=== PATIENT | female | born 1945 | race Caucasian/White ===

== ENCOUNTER 2017-03-17 10:02 | Inpatient (IN) | payer MEDICARE, OTHER, MEDICAID ==
[2017-03-17] MEDS ORDERED: CLINDAMYCIN PHOSPHATE INJ 300 MG/2 ML SDV IV ONE (11:24)
--- NOTE | 2017-03-17 11:28 | ER Document Report ---
ED Skin Rash/Insect Bite/Abscs - General Chief Complaint: Boil Stated Complaint: BREAST PAIN Time Seen by Provider: 03/17/17 11:18 Mode of Arrival: Ambulatory Information source: Patient Notes: 71 yo diabetic female resident on [facility] was seen at [facility] for IV antibiotics for 3 abscess that she has been battling for several weeks.The PA sent her to the ER for admission. PCP Jessa Troncoso MD. No fever. No hx MRSA TRAVEL OUTSIDE OF THE [place] IN LAST 30 DAYS: No - Related Data Allergies/Adverse Reactions: Sulfa (Sulfonamide Antibiotics) Allergy (Intermediate, Verified 03/17/17 10:08) RASH methotrexate [Methotrexate] Adverse Reaction (Unknown, Verified 03/17/17 10:08) Hepatic dysfunction Home Medications: Current Home Medications Acetaminophen [Tylenol Extra Strength 500 mg Tablet] 1,000 mg PO Q8HP PRN [History] Amlodipine Besylate [Norvasc 2.5 mg Tablet] 2.5 mg PO DAILY 03/17/17 [History] Citalopram Hydrobromide [Celexa 20 mg Tablet] 20 mg PO DAILY 03/17/17 [History] Clopidogrel Bisulfate [Plavix 75 mg Tablet] 75 mg PO DAILY 03/17/17 [History] Insulin Detemir [Levemir Flextouch] 12 unit SQ QHS 03/17/17 [History] Insulin Detemir [Levemir Flextouch] 14 unit SQ DAILY 03/17/17 [History] Insulin Lispro [Humalog] 0 unit SQ ASDIR PRN 03/17/17 [History] Lisinopril [Prinivil 10 mg Tablet] 10 mg PO DAILY 03/17/17 [History] Loratadine [Claritin] 10 mg PO DAILY 03/17/17 [History] Lorazepam [Ativan 0.5 mg Tablet] 0.25 mg PO Q12 03/17/17 [History] Metformin HCl [Glucophage] 500 mg PO [id number] 03/17/17 [History] Polyvinyl Alcohol [Artificial Tears] 15 ml OU QID 03/17/17 [History] Quetiapine Fumarate [Seroquel 25 mg Tablet] 25 mg PO QHS 03/17/17 [History] Simvastatin 40 mg PO QHS 03/17/17 [History] Past Medical History - General Information source: Patient - Social History Smoking Status: Never Smoker Frequency of alcohol use: None Drug Abuse: None Lives with: Prison Family History: Reviewed & Not Pertinent Patient has suicidal ideation: No Patient has homicidal ideation: No - Past Medical History Cardiac Medical History: Reports: Hx Hypercholesterolemia, Hx Hypertension Pulmonary Medical History: Reports: Hx COPD, Hx Pneumonia Neurological Medical History: Reports: Hx Cerebrovascular Accident - USES WHEELCHAIR Endocrine Medical History: Reports: Hx Diabetes Mellitus Type 2 Renal/ Medical History: Denies: Hx Peritoneal Dialysis GI Medical History: Reports: 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 Musculoskeltal Medical History: Reports Hx Arthritis Psychiatric Medical History: Reports: Hx Depression Infectious Medical History: Reports: 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 Past Surgical History: Reports: Hx Appendectomy - per patient, Hx Cholecystectomy, Hx Hysterectomy - Immunizations Hx Diphtheria, Pertussis, Tetanus Vaccination: Yes Hx Pneumococcal Vaccination: 09/01/12 Review of Systems - Review of Systems Constitutional: No symptoms reported EENT: No symptoms reported Cardiovascular: No symptoms reported Respiratory: No symptoms reported Gastrointestinal: No symptoms reported Genitourinary: No symptoms reported Female Genitourinary: No symptoms reported Musculoskeletal: No symptoms reported Skin: See HPI Hematologic/Lymphatic: No symptoms reported Neurological/Psychological: No symptoms reported Physical Exam - Vital signs Vitals: Temp Pulse Resp BP Pulse Ox 98.3 F 107 H 20 145/64 H 92 03/17/17 10:08 03/17/17 10:08 03/17/17 10:08 03/17/17 10:08 03/17/17 10:08 Interpretation: Normal - General General appearance: Appears well, Alert In distress: None - HEENT Head: Normocephalic, Atraumatic Eyes: Normal Pupils: PERRL Neck: Supple. No: Lymphadenopathy - Respiratory Respiratory status: No respiratory distress Chest status: Nontender Breath sounds: Normal Chest palpation: Normal - Cardiovascular Rhythm: Regular Heart sounds: Normal auscultation Murmur: No - Abdominal Inspection: Normal Distension: No distension Bowel sounds: Normal Tenderness: Nontender Organomegaly: No organomegaly - Back Back: Normal, Nontender - Extremities General upper extremity: Normal inspection, Nontender, Normal color, Normal ROM , Normal temperature General lower extremity: Normal inspection, Nontender, Normal color, Normal ROM , Normal temperature, Normal weight bearing. No: Katerina's sign - Neurological Neuro grossly intact: Yes Cognition: Normal Orientation: AAOx4 [place] Coma Scale Eye Opening: Spontaneous [place] Coma Scale Verbal: Oriented Dougie Coma Scale Motor: Obeys Commands [place] Coma Scale Total: 15 Speech: Normal Motor strength normal: LUE, RUE, LLE, RLE Sensory: Normal - Psychological Associated symptoms: Normal affect, Normal mood - Skin Skin Temperature: Warm Skin Moisture: Dry Skin Color: Normal Skin irregularity: Abscess - right infereior breast, flucuant with surrounding cellulits. , right olecranon with crusted abscess, right axilla healing lestion (drained spontaneously) Course - Re-evaluation Re-evalutation: 03/17/17 11:[address] rodriguez who will admit, consult for dr jaron howard, message given to him, he is in surgery. - Vital Signs Vital signs: Temp Pulse Resp BP Pulse Ox 98.2 F 58 L 18 130/57 H 100 03/20/17 20:00 03/20/17 20:00 03/20/17 15:43 03/20/17 20:00 03/20/17 20:00 - Laboratory Result Diagrams: 03/19/17 04:42 03/20/17 15:00 Laboratory results interpreted by me: 03/17/17 03/17/17 11:51 11:51 WBC 15.5 H Hgb 9.3 L Hct 30.4 L MCH 24.5 L MCHC 30.6 L RDW 18.1 H Seg Neutrophils % 80.7 H Lymphocytes % 7.3 L Absolute Neutrophils 12.5 H BUN 29 H Est GFR (Non-Af Amer) 50 L Glucose 170 H Alkaline Phosphatase 154 H Albumin 3.3 L Discharge - Discharge Clinical Impression: Abscess of multiple sites Condition: Good Disposition: ADMITTED INPATIENT Admitting Provider: Hospitalist Unit Admitted: Medical Floor
[2017-03-17] MEDS ORDERED: NORMAL SALINE 1000 ML 1,000 ML IV ONE (11:46)
[2017-03-17] MEDS ORDERED: MAGNESIUM HYDROXIDE SUSP 30 ML UDCUP PO PRN (12:17)
[2017-03-17] MEDS ORDERED: ONDANSETRON HCL INJ/PF 4 MG/2 ML SDV IV PRN ×2 (12:17→13:29)
[2017-03-17] MEDS ORDERED: OXYCODONE-ACETAMINOPHEN 5-325 MG TABLET PO PRN (12:17)
[2017-03-17] MEDS ORDERED: NORMAL SALINE 1000 ML 1,000 ML IV PRN (12:17)
[2017-03-17 12:19] LABS: ABSOLUTE BASOPHILS # (AUTO) 0.1 10^3/uL (0.0-0.2); ABSOLUTE EOSINOPHILS # (AUTO) 0.4 10^3/uL (0.0-0.6); ABSOLUTE LYMPHOCYTES (AUTO) 1.1 10^3/uL (0.5-4.7); ABSOLUTE MONOCYTES (AUTO) 1.3 10^3/uL (0.1-1.4); ABSOLUTE NEUT (AUTO) 12.5 10^3/uL (1.7-8.2); BASOPHILS % (AUTO) 0.6 % (0-2); EOSINOPHILS % (AUTO) 2.8 % (0-6); HEMATOCRIT 30.4 % (36.0-47.0); HEMOGLOBIN 9.3 g/dL (12.0-15.5); HGB HCT DIFFERENCE -2.5; LYMPHOCYTES % (AUTO) 7.3 % (13-45); MEAN CORPUSCULAR HEMOGLOBIN 24.5 pg (27.0-33.4); MEAN CORPUSCULAR HGB CONC 30.6 g/dL (32.0-36.0); MEAN CORPUSCULAR VOLUME 80 fl (80-97); MONOCYTES % (AUTO) 8.6 % (3-13); RED BLOOD COUNT 3.81 10^6/uL (3.72-5.28); RED CELL DISTRIBUTION WIDTH 18.1 % (11.5-14.0); SEGMENTED NEUTROPHILS % (AUTO) 80.7 % (42-78); WHITE BLOOD COUNT 15.5 10^3/uL (4.0-10.5)
[2017-03-17] MEDS ORDERED: AMPICILLIN SOD/SULBACTAM 3 GM VIAL IV ONE (12:24)
[2017-03-17] MEDS ORDERED: DEXTROSE 40% GEL 15 GM TUBE PO PRN ×2 (12:25)
[2017-03-17] MEDS ORDERED: GLUCAGON,HUMAN RECOMB 1 MG INJ IM PRN (12:25)
[2017-03-17] MEDS ORDERED: DEXTROSE 50%-WATER 25 GM/50 ML DISP.SYRIN IV PRN ×2 (12:25)
[2017-03-17] MEDS ORDERED: VANCOMYCIN HCL 0 MG in DEXTROSE 5%-WATER 250 ML IV NR (12:30)
[2017-03-17 12:38] LABS: ALANINE AMINOTRANSFERASE 22 U/L (9-52); ALBUMIN 3.3 g/dL (3.5-5.0); ALKALINE PHOSPHATASE 154 U/L (38-126); ANION GAP 11 (5-19); ASPARTATE AMINO TRANSFERASE 14 U/L (14-36); BILIRUBIN,DIRECT 0.3 mg/dL (0.0-0.4); BILIRUBIN,TOTAL 0.5 mg/dL (0.2-1.3); BLOOD UREA NITROGEN 29 mg/dL (7-20); CALCIUM 9.1 mg/dL (8.4-10.2); CARBON DIOXIDE 23 mmol/L (22-30); CHLORIDE 107 mmol/L (98-107); CREATININE RESULT 1.08 mg/dL (0.52-1.25); GLUCOSE 170 mg/dL (75-110); SODIUM 141.3 mmol/L (137-145); TOTAL PROTEIN 7.1 g/dL (6.3-8.2)
[2017-03-17] MEDS ORDERED: FENTANYL CITRATE INJ/PF 100 MCG/2 ML AMPUL ONE (13:14)
[2017-03-17] MEDS ORDERED: MIDAZOLAM 2 MG/2 ML INJ ONE (13:14)
[2017-03-17] MEDS ORDERED: PROPOFOL INJ 200 MG/20 ML VIAL IV ONE (13:14)
[2017-03-17] MEDS ORDERED: ACETAMINOPHEN 100 ML IV ONE (13:15)
[2017-03-17] MEDS ORDERED: KETAMINE HCL INJ 500 MG/10 ML VIAL ONE (13:15)
[2017-03-17] MEDS ORDERED: LIDOCAINE 1% INJ-PF (10 MG/ML) 30 ML SDV ONE (13:18)
[2017-03-17] MEDS ORDERED: MORPHINE SULFATE 10 MG/ML INJ IV PRN (13:29)
[2017-03-17] MEDS ORDERED: MEPERIDINE HCL/PF INJ 25 MG/1 ML DISP.SYRIN IV PRN (13:29)
[2017-03-17] MEDS ORDERED: PROMETHAZINE HCL INJ 25 MG/1 ML VIAL IV PRN (13:29)
[2017-03-17] MEDS ORDERED: DIPHENHYDRAMINE HCL 50 MG/ML VIAL IV PRN (13:29)
[2017-03-17] MEDS ORDERED: FENTANYL CITRATE INJ/PF 100 MCG/2 ML AMPUL IV PRN (13:29)
--- NOTE | 2017-03-17 13:33 | CONSULTATION REPORT E ---
Consultation Report NAME: VINNY KEYS : 1945 AGE: 71Y DATE: 03/17/2017 ED02 A TO: HATTIE GAO M.D. FROM: TR LEMOS M.D. Requesting Physician Patient seen at the request of Dr. Lemos, hospitalist. REPORT OF CONSULTATION: The patient is a 71-year-old white female with a history of arthritis, resident of [facility], with a several week history of multiple abscesses involving her right breast, right axilla, and right elbow. She was seen in the [facility] today where she was felt to have evidence of infection that could not be managed in the clinic and she was sent to the emergency department for further evaluation. There, she was seen by Dr. Gao and Dr. Lemos and felt to require admission for cellulitis, right breast abscess refractory to outpatient medical management, and early sepsis. PAST MEDICAL/SURGICAL HISTORY: Can be found in history and physical document. PHYSICAL EXAMINATION: GENERAL: Patient examined in room 2 of the emergency department. She is in no acute distress. She is awake, alert, and oriented x4. BREASTS: Cutaneous examination reveals a large elevated focal superficially pre-necrotic abscess at the 4 o'clock position. Right breast with sponginess and tenderness and surrounding cellulitis. Small punctate abscess in the right elbow and similar abscess in the right axilla. LUNGS: Clear to auscultation bilaterally. HEART: Without murmur or gallop. Remainder of examination is significant for severe arthritis of the lower extremities. LABORATORY PROFILE: A white blood cell count of 15,000, hemoglobin of 9. IMPRESSION: 1. Multiple abscesses with largest involving the right breast, and secondary abscesses of the right axilla and right elbow, refractory to outpatient medical management, in need of operative debridement. 2. Patient on antiplatelet medication, Plavix. RECOMMENDATIONS: 1. Patient is being admitted to the hospitalist service, kept n.p.o. on IV fluids and intravenous antibiotics started. 2. Will take back to the operating room under LMAC anesthesia and perform I and D of these abscesses with packing; right breast abscess will be sent for histologic analysis as well. DICTATING PHYSICIAN: HATTIE GAO M.D. [id number] PHY#: [id number] ID: [id number] JOB#: [id number] ACCT: [id number] cc:HATTIE GAO M.D. >
--- NOTE | 2017-03-17 13:36 | PDOC H&P ---
History of Present Illness Admission Date/PCP: 03/17/17 11:48 ZULY FRANCIS Patient complains of: pain and swelling in her breast History of Present Illness: VINNY KEYS is a 71 year old female resident of [place] presents from surgeon's office for evaluation of pain and swelling in her Rt breast. she states it all started a couple of weeks ago with painful swollen nodule under her Rt armpit that spontaneously eriupted " a bunch of fluid" and then got better. short time after that she developed a "sore" on her Rt breast just under the nipple and another on her Rt elbow. both are swollen red hot to touch and very tender and getting bigger and more painful described as sharp, stabbing ,constant, nonradiating with asct'd chills and nausea. no trauma or instrumentation. no prior hx of MRSA or other chronic/recurrent infections however she is on biologic agent for her psoriasis, no steroids. eval in ED shows cellulitis with abscess of the rt breast and elbow and we were asked to admit for IV abx and management. Past Medical History Cardiac Medical History: Reports: Hyperlipidema, Hypertension Denies: Myocardial Infarction Pulmonary Medical History: Reports: Chronic Obstructive Pulmonary Disease (COPD) , Pneumonia Denies: Asthma, Tuberculosis Neurological Medical History: Denies: Seizures Endocrine Medical History: Reports: Diabetes Mellitus Type 2 GI Medical History: Reports: Hepatitis - damage from taking methatrexate Denies: Hiatal Hernia Musculoskeltal Medical History: Reports: Arthritis Skin Medical History: Reports: Psoriasis Psychiatric Medical History: Reports: Depression Hematology: Denies: Anemia, Sickle Cell Disease Past Surgical History Past Surgical History: Reports: Appendectomy - per patient, Cholecystectomy, Hysterectomy Denies: Amputation, Mastectomy, Pacemaker Social History Information Source: Patient Smoking Status: Never Smoker Frequency of Alcohol Use: None Hx Recreational Drug Use: No Hx Prescription Drug Abuse: No - Advance Directive Resuscitation Status: Full Code Family History Family History: Reviewed & Not Pertinent, DM Parental Family History Reviewed: Yes Children Family History Reviewed: Yes Sibling(s) Family History Reviewed.: Yes Medication/Allergy Allergies/Adverse Reactions: Sulfa (Sulfonamide Antibiotics) Allergy (Intermediate, Verified 03/17/17 10:08) RASH methotrexate [Methotrexate] Adverse Reaction (Unknown, Verified 03/17/17 10:08) Hepatic dysfunction Review of Systems All systems: reviewed and no additional remarkable complaints except as stated - all systems reviewed, see HPI, remaining systems negative Physical Exam Vital Signs: Temp Pulse Resp BP Pulse Ox 98.3 F 107 H 20 145/64 H 92 03/17/17 10:08 03/17/17 10:08 03/17/17 10:08 03/17/17 10:08 03/17/17 10:08 General appearance: PRESENT: no acute distress, well-developed, well-nourished Head exam: PRESENT: atraumatic, normocephalic Eye exam: ABSENT: conjunctival injection, scleral icterus Mouth exam: PRESENT: moist, neck supple Neck exam: PRESENT: full ROM. ABSENT: lymphadenopathy Respiratory exam: PRESENT: clear to auscultation karyn. ABSENT: accessory muscle use Cardiovascular exam: PRESENT: RRR. ABSENT: systolic murmur Pulses: PRESENT: normal radial pulses, normal dorsalis pedis pul Vascular exam: PRESENT: normal capillary refill GI/Abdominal exam: PRESENT: normal bowel sounds, soft. ABSENT: tenderness Extremities exam: ABSENT: calf tenderness, pedal edema Musculoskeletal exam: PRESENT: full ROM. ABSENT: tenderness Neurological exam: PRESENT: alert, awake, oriented to person, oriented to place , oriented to time Psychiatric exam: PRESENT: appropriate affect, normal mood Focused psych exam: ABSENT: delusional, psychomotor agitation Skin exam: PRESENT: rash - -Rt elbow has purulent vesicle 5mm with surrounding induration, erythema, heat and tenderness without lymphangitic streaking -Rt breast at the 5 o'clock position to the nipple just outside the areola is ragged appearing group of purulent vesicles overlying tight induration with surrounding erythema, heat and tenderness of at least 8cm round Results Laboratory Results: 03/17/17 11:51 03/17/17 11:51 03/17/17 03/17/17 11:51 11:51 WBC 15.5 H RBC 3.81 Hgb 9.3 L Hct 30.4 L MCV 80 MCH 24.5 L MCHC 30.6 L RDW 18.1 H Plt Count 380 Seg Neutrophils % 80.7 H Lymphocytes % 7.3 L Monocytes % 8.6 Eosinophils % 2.8 Basophils % 0.6 Absolute Neutrophils 12.5 H Absolute Lymphocytes 1.1 Absolute Monocytes 1.3 Absolute Eosinophils 0.4 Absolute Basophils 0.1 Sodium 141.3 Potassium 5.0 Chloride 107 Carbon Dioxide 23 Anion Gap 11 BUN 29 H Creatinine 1.08 Est GFR ( Amer) > 60 Est GFR (Non-Af Amer) 50 L Glucose 170 H Calcium 9.1 Total Bilirubin 0.5 AST 14 ALT 22 Alkaline Phosphatase 154 H Total Protein 7.1 Albumin 3.3 L Assessment & Plan - Diagnosis (1) Cellulitis and abscess of trunk Is this a current diagnosis for this admission?: Yes (2) Cellulitis and abscess of other specified site Is this a current diagnosis for this admission?: Yes (3) Sepsis affecting skin Is this a current diagnosis for this admission?: YesPlan: evidenced by source, leukocytosis and tachycardia (4) HTN (hypertension) Qualifiers: Hypertension type: essential hypertension Qualified Code(s): I10 - Essential (primary) hypertension Is this a current diagnosis for this admission?: Yes (5) Psoriasis Is this a current diagnosis for this admission?: Yes (6) Immunosuppression Is this a current diagnosis for this admission?: YesPlan: due to chronic immunomodulator therapy for psoriasis (Enbrel) - Time Time Spent: 50 to 70 Minutes Medications reviewed and adjusted accordingly: Yes Anticipated discharge: SNF - return to [facility] Within: within 72 hours - Inpatient Certification Based on my medical assessment, after consideration of the patient's comorbidities, presenting symptoms, or acuity I expect that the services needed warrant INPATIENT care.: Yes I certify that my determination is in accordance with my understanding of Medicare's requirements for reasonable and necessary INPATIENT services [42 CFR 412.3e].: Yes Medical Necessity: Failure to Improve With Outpatient Therapy, Significant Comorbidiites Make Outpatient Treatment Too Risky, Need For IV Fluids, Need for IV Antibiotics, Need for Surgery, Risk of Complication if Not Cared For in Hospital - Plan Summary Plan Summary: - continue home meds for chronic conditions except the biologic agents - I spoke with Dr Gao who intends to take to the OR later today for I&D - broad spectrum abx in light of her SNF residence and potential exposure to MRSA as well as her immunocompromised state - IVFs and abx for the sepsis; f/u labs in am. f/u cultures and adjust abx accordingly
--- NOTE | 2017-03-17 14:49 | Operative Report ---
Operative Report DATE OF SURGERY: 03/17/17 PREOPERATIVE DIAGNOSIS: Multiple abscesses of the right axilla right elbow, and right breast POSTOPERATIVE DIAGNOSIS: Same; infection suspicious for MRSA OPERATION: Excisional debridement of multiple abscesses including. 1. right axilla, 2 x 2 x 5 cm. 2. Right elbow 0.5 x 1.5 x 3 cm. 3. Right breast 4 x 6 x 4 cm. Including washout, debridement and packing SURGEON: HATTIE CUEVAS ANESTHESIA: LMAC TISSUE REMOVED OR ALTERED: Nonviable skin and pus and subcutaneous tissue COMPLICATIONS: None ESTIMATED BLOOD LOSS: Scant INTRAOPERATIVE FINDINGS: See below PROCEDURE: With epinephrine. The right elbow abscess just distal to the olecranon was excised in an elliptical fashion, underlying loculations broken up with hemostat. Wound irrigated and packed with approximately 3 inches of 1 inch wide iodoform packing. The patient was taken to the preop holding area the main operating room where LMAC anesthesia was induced. The right elbow, axilla and breast were prepped draped sterile fashion Surgical plan surgical timeout was conducted. All 3 abscesses were anesthetized with 1% lidocaine ; On the right axilla with the wound approximately 2 and at by 2.5 x 4 cm deep. Loculations were broken up after excising the skin with a knife. The wound was consistent with MRSA. Wound cultures obtained. Total skin removed 2 x 2 x 2 cm. The right breast infra periareolar abscess was excised in elliptical fashion. Copious amount of pus exuded forth. Loculations broken broken up with index finger. There was no evidence of mass-effect so no formal biopsy was performed for histologic analysis. This wound was also irrigated and packed with iodoform packing. Total skin removed was a 4 x 6 centimeters. Postop procedure well, taken recovery in stable condition.
[2017-03-17] MEDS ORDERED: MAGNESIUM SULFATE/D5W 1 GM/100 ML RTUPB IV ONE (14:58)
[2017-03-17] MEDS: VANCOMYCIN HCL 1,250 MG in DEXTROSE 5%-WATER 250 ML IV SCH (18:40)
[2017-03-17] MEDS: AMPICILLIN SODIUM/SULBACTAM NA 3 GM in NORMAL SALINE 100 ML IV SCH ×2 (18:42→22:09)
[2017-03-17] MEDS ORDERED: KETOROLAC TROMETHAMINE 60 MG/2 ML SDV ONE (18:49)
[2017-03-17] MEDS ORDERED: LIDOCAINE 2% INJ-PF (20 MG/ML) 10 ML AMPUL ONE (18:49)
[2017-03-17] MEDS ORDERED: METOCLOPRAMIDE HCL INJ/PF 10 MG/2 ML SDV ONE (18:49)
[2017-03-17] MEDS ORDERED: ONDANSETRON HCL INJ/PF 4 MG/2 ML SDV ONE (18:49)
[2017-03-17] MEDS ORDERED: DEXAMETHASONE SOD PHOSPHATE INJ 4 MG/1 ML VIAL ONE (18:49)
[2017-03-17] MEDS: INSULIN LISPRO 100 UNIT/ML 3 ML VIAL SUBCUT PRN (22:12)
[2017-03-17] MEDS: INSULIN GLARGINE,HUM.REC.ANLOG 300 UNIT/3 ML INSULN.PEN SUBCUT SCH (22:12)
[2017-03-18] MEDS: ACETAMINOPHEN 325 MG TABLET PO PRN ×3 (02:16→23:11)
[2017-03-18 05:16] LABS: HEMATOCRIT 25.4 % (36.0-47.0); HGB HCT DIFFERENCE -1.4; MEAN CORPUSCULAR HEMOGLOBIN 24.9 pg (27.0-33.4); MEAN CORPUSCULAR HGB CONC 31.4 g/dL (32.0-36.0); MEAN CORPUSCULAR VOLUME 79 fl (80-97); RED BLOOD COUNT 3.21 10^6/uL (3.72-5.28); RED CELL DISTRIBUTION WIDTH 18.3 % (11.5-14.0)
[2017-03-18] MEDS: LANSOPRAZOLE 30 MG TAB.RAP.DR PO SCH (05:23)
[2017-03-18] MEDS: AMPICILLIN SODIUM/SULBACTAM NA 3 GM in NORMAL SALINE 100 ML IV SCH ×3 (05:23→22:57)
[2017-03-18 05:58] LABS: BASOPHILS % (MANUAL) 0 % (0-2); EOSINOPHILS % (MANUAL) 6 % (0-6); LYMPHOCYTES % (MANUAL) 4 % (13-45); TOTAL CELLS COUNTED 100; TOXIC VACUOLATION PRESENT
[2017-03-18 05:59] LABS: ANISOCYTOSIS 2+
[2017-03-18] MEDS: ENOXAPARIN SODIUM INJ 30 MG/0.3 ML DISP.SYRIN SUBCUT SCH (08:36)
--- NOTE | 2017-03-18 09:14 | PROGRESS NOTE E ---
Progress Note NAME: VINNY KEYS : 1945 AGE: 71Y DATE: 03/18/2017 ROOM: 537 SUBJECTIVE: The patient had incision and drainage of multiple abscesses in the arm, axillary and the breast done by Dr. Gao on 03/17/2017. OBJECTIVE: On examination, all her dressings are clean and dry. She is complaining of pain along the right elbow. The wound here was inspected. No evidence of bleeding or abscess. It is one of the areas drained by Dr. Gao. The patient was reassured. PLAN: I would change the dressing tomorrow and possibly discharge after that. She can be discharged on p.o. antibiotics and [facility] DICTATING PHYSICIAN: CR EUBANKS M.D. [id number] PHY#: [id number] ID: [id number] JOB#: [id number] ACCT: [id number] cc: >
[2017-03-18] MEDS ORDERED: POLYVINYL ALCOHOL 1.4% OPH SOLN 15 ML OU SCH (10:00)
--- NOTE | 2017-03-18 10:58 | PDOC PROGRESS REPORT ---
Subjective Progress Note for:: 03/18/17 Subjective:: reason for visit: f/u cellulitis and abscesses of skin hospital course: VINNY KEYS is a 71 year old female resident of [place] presents from surgeon's office for evaluation of pain and swelling in her Rt breast. she states it all started a couple of weeks ago with painful swollen nodule under her Rt armpit that spontaneously eriupted " a bunch of fluid" and then got better. short time after that she developed a "sore" on her Rt breast just under the nipple and another on her Rt elbow. both are swollen red hot to touch and very tender and getting bigger and more painful described as sharp, stabbing ,constant, nonradiating with asct'd chills and nausea. no trauma or instrumentation. no prior hx of MRSA or other chronic/ recurrent infections however she is on biologic agent for her psoriasis, no steroids. eval in ED shows cellulitis with abscess of the rt breast and elbow and we were asked to admit for IV abx and management. Dr Gao took to the OR last night for I&D of the three areas of concern with good liberation of pus and removal on nonviable tissue; cultures still pending. she tolerated the procedure without difficulty and overall feels better this morning. ROS: she denies chest pain, palpitations, n/v/d, fevers/chills and is in good spirits this morning. all systems reviewed, see above, remaining systems negative. Physical Exam Vital Signs: Temp Pulse Resp BP Pulse Ox 98.0 F 69 17 128/35 H 94 03/18/17 07:08 03/18/17 07:08 03/18/17 07:08 03/18/17 07:08 03/18/17 07:08 Intake & Output 03/17/17 03/18/17 03/19/17 06:59 06:59 06:59 Intake Total 1945 360 Output Total 305 Balance 1640 360 Weight 73.8 kg General appearance: PRESENT: no acute distress, well-developed, well-nourished Head exam: PRESENT: atraumatic, normocephalic Eye exam: ABSENT: conjunctival injection, scleral icterus Mouth exam: PRESENT: moist, neck supple Neck exam: PRESENT: full ROM. ABSENT: lymphadenopathy Respiratory exam: PRESENT: clear to auscultation karyn. ABSENT: accessory muscle use Cardiovascular exam: PRESENT: RRR. ABSENT: systolic murmur Pulses: PRESENT: normal radial pulses, normal dorsalis pedis pul Vascular exam: PRESENT: normal capillary refill GI/Abdominal exam: PRESENT: normal bowel sounds, soft. ABSENT: tenderness Extremities exam: ABSENT: calf tenderness, pedal edema Musculoskeletal exam: PRESENT: full ROM. ABSENT: tenderness Neurological exam: PRESENT: alert, awake, oriented to person, oriented to place , oriented to time Psychiatric exam: PRESENT: appropriate affect, normal mood Focused psych exam: ABSENT: delusional, psychomotor agitation Skin exam: PRESENT: rash - -Rt elbow bandaged with surrounding erythema without lymphangitic streaking and bloody, purulent drainage from the wound -Rt breast at the 5 o'clock position to the nipple just outside the areola large bandage with bloody purulent drainage; Rt axilla has large bandage with bloody purulent drainage as well. Results Laboratory Results: 03/18/17 04:43 03/17/17 03/18/17 17:39 04:43 WBC 14.0 H RBC 3.21 L Hgb 8.0 L Hct 25.4 L MCV 79 L MCH 24.9 L MCHC 31.4 L RDW 18.3 H Plt Count 316 Seg Neutrophils % Not Reportable Lymphocytes % Not Reportable Monocytes % Not Reportable Eosinophils % Not Reportable Basophils % Not Reportable Absolute Neutrophils Not Reportable Absolute Lymphocytes Not Reportable Absolute Monocytes Not Reportable Absolute Eosinophils Not Reportable Absolute Basophils Not Reportable Magnesium 1.9 Assessment & Plan - Diagnosis (1) Cellulitis and abscess of trunk Is this a current diagnosis for this admission?: Yes (2) Cellulitis and abscess of other specified site Is this a current diagnosis for this admission?: Yes (3) Sepsis affecting skin Is this a current diagnosis for this admission?: Yes (4) HTN (hypertension) Qualifiers: Hypertension type: essential hypertension Qualified Code(s): I10 - Essential (primary) hypertension Is this a current diagnosis for this admission?: Yes (5) Psoriasis Is this a current diagnosis for this admission?: Yes (6) Immunosuppression Is this a current diagnosis for this admission?: Yes - Time Time Spent with patient: 25-34 minutes - Plan Summary Plan Summary: most likely staph infection at high risk for MRSA but cultures of fluid still pending so she stays until we can make abx decisions for discharge. may need PICC line and long courese of IV vanc.
[2017-03-18] MEDS: CLOPIDOGREL BISULFATE 75 MG TABLET PO SCH (11:12)
[2017-03-18] MEDS: DOCUSATE SODIUM 100 MG CAPSULE PO SCH (11:13)
[2017-03-18] MEDS: CITALOPRAM HYDROBROMIDE 20 MG TABLET PO SCH (11:13)
[2017-03-18] MEDS: AMLODIPINE BESYLATE 2.5 MG TABLET PO SCH (11:13)
[2017-03-18] MEDS: LORAZEPAM 0.5 MG TABLET PO SCH ×2 (11:13→22:56)
[2017-03-18] MEDS: POLYVINYL ALCOHOL 1.4% OPH SOLN 15 ML OU SCH ×3 (13:05→22:57)
[2017-03-18] MEDS: VANCOMYCIN HCL 1,250 MG in DEXTROSE 5%-WATER 250 ML IV SCH (15:49)
[2017-03-18] MEDS: INSULIN LISPRO 100 UNIT/ML 3 ML VIAL SUBCUT PRN ×2 (17:12→22:57)
[2017-03-18] MEDS: INSULIN GLARGINE,HUM.REC.ANLOG 300 UNIT/3 ML INSULN.PEN SUBCUT SCH (22:56)
[2017-03-18] MEDS: SIMVASTATIN 40 MG TABLET PO SCH (22:56)
[2017-03-18] MEDS: QUETIAPINE FUMARATE 25 MG TABLET PO SCH (22:56)
[2017-03-19 05:03] LABS: ABSOLUTE BASOPHILS # (AUTO) 0.1 10^3/uL (0.0-0.2); ABSOLUTE EOSINOPHILS # (AUTO) 0.7 10^3/uL (0.0-0.6); ABSOLUTE LYMPHOCYTES (AUTO) 0.8 10^3/uL (0.5-4.7); ABSOLUTE MONOCYTES (AUTO) 0.9 10^3/uL (0.1-1.4); ABSOLUTE NEUT (AUTO) 8.3 10^3/uL (1.7-8.2); BASOPHILS % (AUTO) 0.9 % (0-2); EOSINOPHILS % (AUTO) 6.7 % (0-6); HEMATOCRIT 26.4 % (36.0-47.0); HEMOGLOBIN 8.2 g/dL (12.0-15.5); HGB HCT DIFFERENCE -1.8; LYMPHOCYTES % (AUTO) 7.3 % (13-45); MEAN CORPUSCULAR VOLUME 81 fl (80-97); MONOCYTES % (AUTO) 8.7 % (3-13); RED BLOOD COUNT 3.28 10^6/uL (3.72-5.28); RED CELL DISTRIBUTION WIDTH 17.4 % (11.5-14.0); SEGMENTED NEUTROPHILS % (AUTO) 76.4 % (42-78); WHITE BLOOD COUNT 10.9 10^3/uL (4.0-10.5)
[2017-03-19] MEDS: LANSOPRAZOLE 30 MG TAB.RAP.DR PO SCH (05:21)
[2017-03-19] MEDS: POLYVINYL ALCOHOL 1.4% OPH SOLN 15 ML OU SCH ×4 (05:23→23:34)
[2017-03-19] MEDS: AMPICILLIN SODIUM/SULBACTAM NA 3 GM in NORMAL SALINE 100 ML IV SCH ×3 (05:23→21:37)
[2017-03-19] MEDS: ENOXAPARIN SODIUM INJ 30 MG/0.3 ML DISP.SYRIN SUBCUT SCH (08:27)
[2017-03-19] MEDS: DOCUSATE SODIUM 100 MG CAPSULE PO SCH (10:44)
[2017-03-19] MEDS: LORAZEPAM 0.5 MG TABLET PO SCH ×2 (10:44→21:37)
[2017-03-19] MEDS: AMLODIPINE BESYLATE 2.5 MG TABLET PO SCH (10:44)
[2017-03-19] MEDS: CLOPIDOGREL BISULFATE 75 MG TABLET PO SCH (10:44)
[2017-03-19] MEDS: CITALOPRAM HYDROBROMIDE 20 MG TABLET PO SCH (10:44)
--- NOTE | 2017-03-19 11:35 | PDOC PROGRESS REPORT ---
Subjective Progress Note for:: 03/19/17 Subjective:: reason for visit: f/u cellulitis and abscesses of skin hospital course: VINNY KEYS is a 71 year old female resident of [place] presents from surgeon's office for evaluation of pain and swelling in her Rt breast. she states it all started a couple of weeks ago with painful swollen nodule under her Rt armpit that spontaneously eriupted " a bunch of fluid" and then got better. short time after that she developed a "sore" on her Rt breast just under the nipple and another on her Rt elbow. both are swollen red hot to touch and very tender and getting bigger and more painful described as sharp, stabbing ,constant, nonradiating with asct'd chills and nausea. no trauma or instrumentation. no prior hx of MRSA or other chronic/ recurrent infections however she is on biologic agent for her psoriasis, no steroids. eval in ED shows cellulitis with abscess of the rt breast and elbow and we were asked to admit for IV abx and management. Dr Gao took to the OR last night for I&D of the three areas of concern with good liberation of pus and removal on nonviable tissue; cultures so far unrevealing. she tolerated the procedure without difficulty and overall feels better each morning. ROS: she denies chest pain, palpitations, n/v/d, fevers/chills and is in good spirits this morning. all systems reviewed, see above, remaining systems negative. Physical Exam Vital Signs: Temp Pulse Resp BP Pulse Ox 97.8 F 38 L 16 146/36 H 97 03/19/17 07:35 03/19/17 07:35 03/19/17 07:35 03/19/17 07:35 03/19/17 07:35 Intake & Output 03/18/17 03/19/17 03/20/17 06:59 06:59 06:59 Intake Total 1945 2220 Output Total 305 Balance 1640 2220 Weight 73.8 kg 76.6 kg General appearance: PRESENT: no acute distress, well-developed, well-nourished Head exam: PRESENT: atraumatic, normocephalic Eye exam: ABSENT: conjunctival injection, scleral icterus Mouth exam: PRESENT: moist, neck supple Neck exam: PRESENT: full ROM. ABSENT: lymphadenopathy Respiratory exam: PRESENT: clear to auscultation karyn. ABSENT: accessory muscle use Cardiovascular exam: PRESENT: RRR. ABSENT: systolic murmur Pulses: PRESENT: normal radial pulses, normal dorsalis pedis pul Vascular exam: PRESENT: normal capillary refill GI/Abdominal exam: PRESENT: normal bowel sounds, soft. ABSENT: tenderness Extremities exam: ABSENT: calf tenderness, pedal edema Musculoskeletal exam: PRESENT: full ROM. ABSENT: tenderness Neurological exam: PRESENT: alert, awake, oriented to person, oriented to place , oriented to time Psychiatric exam: PRESENT: appropriate affect, normal mood Focused psych exam: ABSENT: delusional, psychomotor agitation Skin exam: PRESENT: rash - -Rt elbow bandaged with surrounding erythema without lymphangitic streaking and bloody, purulent drainage from the wound -Rt breast at the 5 o'clock position to the nipple just outside the areola large bandage with bloody purulent drainage; Rt axilla has large bandage with bloody purulent drainage as well. Results Laboratory Results: 03/19/17 04:42 03/19/17 04:42 WBC 10.9 H RBC 3.28 L Hgb 8.2 L Hct 26.4 L MCV 81 MCH 25.0 L MCHC 31.0 L RDW 17.4 H Plt Count 299 Seg Neutrophils % 76.4 Lymphocytes % 7.3 L Monocytes % 8.7 Eosinophils % 6.7 H Basophils % 0.9 Absolute Neutrophils 8.3 H Absolute Lymphocytes 0.8 Absolute Monocytes 0.9 Absolute Eosinophils 0.7 H Absolute Basophils 0.1 Assessment & Plan - Diagnosis (1) Cellulitis and abscess of trunk Is this a current diagnosis for this admission?: Yes (2) Cellulitis and abscess of other specified site Is this a current diagnosis for this admission?: Yes (3) Sepsis affecting skin Is this a current diagnosis for this admission?: Yes (4) HTN (hypertension) Qualifiers: Hypertension type: essential hypertension Qualified Code(s): I10 - Essential (primary) hypertension Is this a current diagnosis for this admission?: Yes (5) Psoriasis Is this a current diagnosis for this admission?: Yes (6) Immunosuppression Is this a current diagnosis for this admission?: Yes - Time Time Spent with patient: 15-24 minutes Anticipated discharge: SNF Within: within 24 hours - [facility] - Plan Summary Plan Summary: awaiting final path/culture results to decide on oral vx Iv abx as one surgeon says it definitely looks like MRSA while the other thinks oral therapy is appropriate; remember she is immunocompromised which has to be taken into consideration.
[2017-03-19] MEDS: INSULIN LISPRO 100 UNIT/ML 3 ML VIAL SUBCUT PRN ×3 (12:11→21:37)
[2017-03-19] MEDS: VANCOMYCIN HCL 1,250 MG in DEXTROSE 5%-WATER 250 ML IV SCH (15:51)
[2017-03-19] MEDS: ACETAMINOPHEN 325 MG TABLET PO PRN (16:30)
[2017-03-19] MEDS: INSULIN GLARGINE,HUM.REC.ANLOG 300 UNIT/3 ML INSULN.PEN SUBCUT SCH (21:36)
[2017-03-19] MEDS: QUETIAPINE FUMARATE 25 MG TABLET PO SCH (21:37)
[2017-03-19] MEDS: SIMVASTATIN 40 MG TABLET PO SCH (21:37)
--- NOTE | 2017-03-19 21:43 | PROGRESS NOTE E ---
Progress Note NAME: VINNY KEYS : 1945 AGE: 71Y DATE: 03/19/2017 ROOM: 537 SUBJECTIVE: This is the second day for postoperative I and D of the right axilla, right breast and right elbow. All the packing were removed and the wounds noted to be clean. The axilla in the right breast on the sides were gently packed with 0.25 iodoform gauze. She will need continued gentle packing of the wounds daily until they continue to heal. I believe she is going to [facility] tomorrow and [facility] can continue with the dressing changes. DICTATING PHYSICIAN: CR EUBANKS M.D. [id number] PHY#: [id number] ID: [id number] JOB#: [id number] ACCT: [id number] cc: >
[2017-03-20] MEDS: LANSOPRAZOLE 30 MG TAB.RAP.DR PO SCH (05:35)
[2017-03-20] MEDS: ACETAMINOPHEN 325 MG TABLET PO PRN (05:36)
[2017-03-20] MEDS: POLYVINYL ALCOHOL 1.4% OPH SOLN 15 ML OU SCH ×4 (05:36→23:34)
[2017-03-20] MEDS: AMPICILLIN SODIUM/SULBACTAM NA 3 GM in NORMAL SALINE 100 ML IV SCH ×3 (05:36→21:48)
[2017-03-20] MEDS: LORAZEPAM 0.5 MG TABLET PO SCH ×2 (09:36→21:48)
[2017-03-20] MEDS: DOCUSATE SODIUM 100 MG CAPSULE PO SCH (09:36)
[2017-03-20] MEDS: ENOXAPARIN SODIUM INJ 30 MG/0.3 ML DISP.SYRIN SUBCUT SCH (09:36)
[2017-03-20] MEDS: CITALOPRAM HYDROBROMIDE 20 MG TABLET PO SCH (09:36)
[2017-03-20] MEDS: AMLODIPINE BESYLATE 2.5 MG TABLET PO SCH (09:37)
[2017-03-20] MEDS: CLOPIDOGREL BISULFATE 75 MG TABLET PO SCH (09:37)
[2017-03-20] MEDS: INSULIN LISPRO 100 UNIT/ML 3 ML VIAL SUBCUT PRN (11:30)
[2017-03-20] MEDS ORDERED: ONDANSETRON HCL INJ/PF 4 MG/2 ML SDV IV PRN (13:26)
[2017-03-20] MEDS ORDERED: OXYCODONE-ACETAMINOPHEN 5-325 MG TABLET PO PRN (13:27)
[2017-03-20] MEDS ORDERED: MAGNESIUM HYDROXIDE SUSP 30 ML UDCUP PO PRN (13:32)
[2017-03-20] MEDS: VANCOMYCIN HCL 1,250 MG in DEXTROSE 5%-WATER 250 ML IV SCH (15:54)
[2017-03-20 15:55] LABS: CREATININE RESULT 0.98 mg/dL (0.52-1.25)
--- NOTE | 2017-03-20 18:54 | PDOC TRANSFER SUMMARY ---
General - Admit/Disc Date/PCP Admission Date/Primary Care Provider: 03/17/17 12:18 ZULY FRANCIS Discharge Date: 03/21/17 - Discharge Diagnosis (1) Cellulitis and abscess of trunk Is this a current diagnosis for this admission?: YesSummary: mssa s/p I&D; continue wound care with gentle iodoform packing daily covered with gauze until healed. needs 10d augmentin and close oupt f/u (2) Cellulitis and abscess of other specified site Is this a current diagnosis for this admission?: Yes (3) Sepsis affecting skin Is this a current diagnosis for this admission?: YesSummary: resolvd (4) HTN (hypertension) Is this a current diagnosis for this admission?: YesSummary: continue home regimen (5) Psoriasis Is this a current diagnosis for this admission?: YesSummary: topical treatment only until infection clears (6) Immunosuppression Is this a current diagnosis for this admission?: YesSummary: hold biologic agents until infection cleared - Additional Information Resuscitation Status: Full Code Discharge Diet: Diabetic Discharge Activity: Slowly Increase Activity, Supervised Activity - resume previous activity Home Medications: Acetaminophen [Tylenol Extra Strength 500 mg Tablet] 1,000 mg PO Q8HP PRN Amlodipine Besylate [Norvasc 2.5 mg Tablet] 2.5 mg PO DAILY 03/17/17 Citalopram Hydrobromide [Celexa 20 mg Tablet] 20 mg PO DAILY 03/17/17 Clopidogrel Bisulfate [Plavix 75 mg Tablet] 75 mg PO DAILY 03/17/17 Insulin Detemir [Levemir Flextouch] 12 unit SQ QHS 03/17/17 Insulin Detemir [Levemir Flextouch] 14 unit SQ DAILY 03/17/17 Insulin Lispro [Humalog] 0 unit SQ ASDIR PRN 03/17/17 Lisinopril [Prinivil 10 mg Tablet] 10 mg PO DAILY 03/17/17 Loratadine [Claritin] 10 mg PO DAILY 03/17/17 Lorazepam [Ativan 0.5 mg Tablet] 0.25 mg PO Q12 03/17/17 Metformin HCl [Glucophage] 500 mg PO [id number] 03/17/17 Polyvinyl Alcohol [Artificial Tears] 15 ml OU QID 03/17/17 Quetiapine Fumarate [Seroquel 25 mg Tablet] 25 mg PO QHS 03/17/17 Simvastatin 40 mg PO QHS 03/17/17 Amox Tr/Potassium Clavulanate [Augmentin 875-125 mg Tablet] 1 tab PO BID #20 tablet 03/20/17 Docusate Sodium [Colace 100 mg Capsule] 100 mg PO DAILY capsule 03/20/17 Magnesium Hydroxide [Milk of Magnesia 30 ml Udcup] 30 ml PO HSP PRN udc Oxycodone HCl/Acetaminophen [Percocet 5-325 mg Tablet] 1 tab PO Q4HP PRN #14 tablet 03/20/17 History of Present Illness Admission Date/PCP: 03/17/17 12:18 ZULY FRANCIS Patient complains of: pain and swelling of breast and axilla History of Present Illness: VINNY KEYS is a 71 year old female resident of [place] presents from surgeon's office for evaluation of pain and swelling in her Rt breast. she states it all started a couple of weeks ago with painful swollen nodule under her Rt armpit that spontaneously eriupted " a bunch of fluid" and then got better. short time after that she developed a "sore" on her Rt breast just under the nipple and another on her Rt elbow. both are swollen red hot to touch and very tender and getting bigger and more painful described as sharp, stabbing ,constant, nonradiating with asct'd chills and nausea. no trauma or instrumentation. no prior hx of MRSA or other chronic/recurrent infections however she is on biologic agent for her psoriasis, no steroids. eval in ED shows cellulitis with abscess of the rt breast and elbow and we were asked to admit for IV abx and management. she was admitted and placed on IV abx and surgical evaluation for extensive I&D of all three lesions and immediate improvement in condition. her cultures returned showing MSSA and she can be weaned back to oral augmentin for another 10d. she is stable for transport back to [place] where she resides but it is too late in the day and will have to wait until morning. Hospital Course Hospital Course: she states it all started a couple of weeks ago with painful swollen nodule under her Rt armpit that spontaneously eriupted " a bunch of fluid" and then got better. short time after that she developed a "sore" on her Rt breast just under the nipple and another on her Rt elbow. both are swollen red hot to touch and very tender and getting bigger and more painful described as sharp, stabbing ,constant, nonradiating with asct'd chills and nausea. no trauma or instrumentation. no prior hx of MRSA or other chronic/recurrent infections however she is on biologic agent for her psoriasis, no steroids. eval in ED shows cellulitis with abscess of the rt breast and elbow and we were asked to admit for IV abx and management. Dr Gao took to the OR last night for I&D of the three areas of concern with good liberation of pus and removal on nonviable tissue; cultures so far unrevealing. she tolerated the procedure without difficulty and overall feels better each morning. Physical Exam Vital Signs: Temp Pulse Resp BP Pulse Ox 98.1 F 36 L 18 178/53 H 99 03/20/17 15:43 03/20/17 15:43 03/20/17 15:43 03/20/17 15:43 03/20/17 15:43 Intake & Output 03/19/17 03/20/17 03/21/17 06:59 06:59 06:59 Intake Total 2220 1501 1626 Balance 2220 1501 1626 Weight 76.6 kg 73.1 kg General appearance: PRESENT: no acute distress, well-developed, well-nourished Head exam: PRESENT: atraumatic, normocephalic Respiratory exam: PRESENT: clear to auscultation karyn GI/Abdominal exam: PRESENT: normal bowel sounds, soft. ABSENT: tenderness Skin exam: PRESENT: other - lesions all improved, still with some purulent drainage from the breast and serosanguinous fluid from the elbow and axilla Results Laboratory Results: 03/19/17 04:42 03/20/17 15:00 03/20/17 15:00 Creatinine 0.98 Est GFR ( Amer) > 60 Est GFR (Non-Af Amer) 56 L 03/17/17 14:33 Axilla - Right Side Abscess Gram Stain - Final 03/17/17 14:33 Axilla - Right Side Abscess Wound Culture - Final Staphylococcus Aureus No Anaerobic Organisms Transfer Plan - Disposition Transfer Plan: continue wound care and abx at the facility; f/u with surgeon for wound ck - Time Spent with Patient Time spent with patient: Greater than 30 Minutes Qualifiers PATEINT BEING DISCHARGED WITH ANY OF THE FOLLOWING DIAGNOSIS?: No VTE patient discharged on overlapping Therapy?: No Reason(s) for not prescribing Overlap Therapy:: Not indicated
[2017-03-20] MEDS: INSULIN GLARGINE,HUM.REC.ANLOG 300 UNIT/3 ML INSULN.PEN SUBCUT SCH (21:45)
[2017-03-20] MEDS: QUETIAPINE FUMARATE 25 MG TABLET PO SCH (21:48)
[2017-03-20] MEDS: SIMVASTATIN 40 MG TABLET PO SCH (21:48)
[2017-03-21] MEDS: POLYVINYL ALCOHOL 1.4% OPH SOLN 15 ML OU SCH ×2 (05:09→14:16)
[2017-03-21] MEDS: LANSOPRAZOLE 30 MG TAB.RAP.DR PO SCH (05:09)
[2017-03-21] MEDS: AMPICILLIN SODIUM/SULBACTAM NA 3 GM in NORMAL SALINE 100 ML IV SCH ×2 (05:09→16:17)
[2017-03-21] MEDS: CLOPIDOGREL BISULFATE 75 MG TABLET PO SCH (09:58)
[2017-03-21] MEDS: DOCUSATE SODIUM 100 MG CAPSULE PO SCH (09:58)
[2017-03-21] MEDS: ENOXAPARIN SODIUM INJ 30 MG/0.3 ML DISP.SYRIN SUBCUT SCH (09:58)
[2017-03-21] MEDS: CITALOPRAM HYDROBROMIDE 20 MG TABLET PO SCH (09:58)
[2017-03-21] MEDS: AMLODIPINE BESYLATE 2.5 MG TABLET PO SCH (09:58)
[2017-03-21] MEDS: LORAZEPAM 0.5 MG TABLET PO SCH (09:58)
--- NOTE | 2017-03-21 10:11 | PDOC PROGRESS REPORT ---
Subjective Progress Note for:: 03/21/17 Subjective:: This is an addendum to a discharge summary dictated 03/20/2017. There have been no changes made to the plan of care as outlined in yesterday's discharge summary dictated by Dr. Sarkar. On the day of discharge the patient is feeling well. Plan of care as outlined in yesterday's discharge summary. She is stable for transfer Physical Exam Vital Signs: Temp Pulse Resp BP Pulse Ox 97.6 F 78 20 140/44 H 98 03/21/17 07:42 03/21/17 07:42 03/21/17 07:42 03/21/17 07:42 03/21/17 07:42 Intake & Output 03/20/17 03/21/17 03/22/17 06:59 06:59 06:59 Intake Total 1501 2106 Output Total 400 Balance 1501 1706 Weight 73.1 kg 70.5 kg General appearance: PRESENT: no acute distress Head exam: PRESENT: atraumatic, normocephalic Respiratory exam: PRESENT: clear to auscultation karyn Cardiovascular exam: PRESENT: RRR, +S1, +S2 GI/Abdominal exam: PRESENT: normal bowel sounds, soft. ABSENT: tenderness Neurological exam: PRESENT: alert, awake, oriented to person, oriented to place , oriented to time Results Laboratory Results: 03/19/17 04:42 03/20/17 15:00 03/20/17 15:00 Creatinine 0.98 Est GFR ( Amer) > 60 Est GFR (Non-Af Amer) 56 L 03/17/17 14:33 Axilla - Right Side Abscess Gram Stain - Final 03/17/17 14:33 Axilla - Right Side Abscess Wound Culture - Final Staphylococcus Aureus No Anaerobic Organisms Assessment & Plan - Diagnosis (2) Cellulitis and abscess of other specified site Is this a current diagnosis for this admission?: Yes (3) Cellulitis and abscess of trunk Is this a current diagnosis for this admission?: Yes (4) HTN (hypertension) Qualifiers: Hypertension type: essential hypertension Qualified Code(s): I10 - Essential (primary) hypertension Is this a current diagnosis for this admission?: Yes (5) Immunosuppression Is this a current diagnosis for this admission?: Yes (6) Psoriasis Is this a current diagnosis for this admission?: Yes (7) Sepsis affecting skin Is this a current diagnosis for this admission?: Yes - Time Time Spent with patient: 35 minutes Time Spent with patient: 35 or more minutes
[2017-03-21 11:59] VITALS: BP 151/52
[2017-03-21] MEDS: ACETAMINOPHEN 325 MG TABLET PO PRN (16:18)
== END 2017-03-21 17:29 | DRG 854 ==
LOC: ER 10:02 → UNDOADMIN 11:48 → EH 11:48 → 5 16:08
PROVIDERS: ADMIT Internal Medicine; ATTEND Internal Medicine
PROC: 0HBDXZZ Excision of Right Lower Arm Skin, External Approach (ICD-10-PCS; 2017-03-17)
PROC: 0HBBXZZ Excision of Right Upper Arm Skin, External Approach (ICD-10-PCS; 2017-03-17)
PROC: 0HBTXZZ (ICD-10-PCS; principal; 2017-03-17 14:00)
DX: A41.9 Sepsis, unspecified organism (principal); L03.113 Cellulitis of right upper limb; L02.411 Cutaneous abscess of right axilla; N61.1 Abscess of the breast and nipple; I10 Essential (primary) hypertension; E78.5 Hyperlipidemia, unspecified; B95.61 Methicillin susceptible Staphylococcus aureus infection as the cause of diseases classified elsewhere; J44.9 Chronic obstructive pulmonary disease, unspecified; E11.9 Type 2 diabetes mellitus without complications; M19.90 Unspecified osteoarthritis, unspecified site; L40.9 Psoriasis, unspecified; F32.9 Major depressive disorder, single episode, unspecified; T50.995S Adverse effect of other drugs, medicaments and biological substances, sequela; Z88.2 Allergy status to sulfonamides; Z88.8 Allergy status to other drugs, medicaments and biological substances; Z90.49 Acquired absence of other specified parts of digestive tract; Z90.710 Acquired absence of both cervix and uterus; Z92.25 Personal history of immunosuppression therapy; Z79.4 Long term (current) use of insulin; Z79.84 Long term (current) use of oral hypoglycemic drugs; Z79.899 Other long term (current) drug therapy; Z86.73 Personal history of transient ischemic attack (TIA), and cerebral infarction without residual deficits
CPT/HCPCS: 36415; 400; 80053; 80202; 82565; 82962; 83735; 85025; 87040; 87070; 87075; 87077; 87186; 87205; 99284; A6266; J0131; J0295; J1100; J1650; J1815; J1885; J2250; J2405; J2704; J2765; J3010; J3370; J3475; J3490; J7030; J7060

== ENCOUNTER 2017-05-21 05:24 | Emergency (ER) | payer MEDICARE, OTHER, MEDICAID ==
--- NOTE | 2017-05-21 05:46 | ER Document Report ---
ED General - General Chief Complaint: Fall Stated Complaint: FALL NECK INJURY Time Seen by Provider: 05/21/17 05:31 Notes: Patient is a 71-year-old female presents with complaint of a fall from [facility]. She says she was trying to get out of her wheelchair and she will fell forward hitting her forehead on the floor. She also put on her left hand and now has some pain in left hand. She denies any neck pain. No back pain. No chest or abdominal pain. No hip or pelvis pain. No other complaints at this time. TRAVEL OUTSIDE OF THE [place] IN LAST 30 DAYS: No - Related Data Allergies/Adverse Reactions: Sulfa (Sulfonamide Antibiotics) Allergy (Intermediate, Verified 05/21/17 05:52) RASH methotrexate [Methotrexate] Adverse Reaction (Unknown, Verified 05/21/17 05:52) Hepatic dysfunction Past Medical History - Social History Smoking Status: Never Smoker Frequency of alcohol use: None Drug Abuse: None Family History: Reviewed & Not Pertinent - Past Medical History Cardiac Medical History: Reports: Hx Hypercholesterolemia, Hx Hypertension Denies: Hx Heart Attack Pulmonary Medical History: Reports: Hx COPD, Hx Pneumonia Denies: Hx Asthma, Hx Tuberculosis Neurological Medical History: Reports: Hx Cerebrovascular Accident - USES WHEELCHAIR. 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 Denies: Hx Mastectomy, Hx Open Heart Surgery , Hx Pacemaker - Immunizations Hx Diphtheria, Pertussis, Tetanus Vaccination: Yes Hx Pneumococcal Vaccination: 09/01/12 Review of Systems - Review of Systems Notes: My Normal Review Basic REVIEW OF SYSTEMS: CONSTITUTIONAL : Denies fever, chills, or sweats. Denies recent illness. RESPIRATORY: Denies cough, cold, or chest congestion. Denies shortness of breath, difficulty breathing, or wheezing. GASTROINTESTINAL: Denies abdominal pain. Denies nausea, vomiting, or diarrhea. Denies constipation. Last BM: MUSCULOSKELETAL: Left hand pain. SKIN: Denies rash or skin lesions. HEMATOLOGIC : Denies easy bruising or bleeding. NEUROLOGICAL: Denies altered mental status or loss of consciousness. Denies headache. Denies weakness or paralysis or loss of use of either side. Denies problems with gait or speech. Denies sensory or motor loss. ALL OTHER SYSTEMS REVIEWED AND NEGATIVE. Physical Exam - Vital signs Vitals: Temp Pulse Resp BP Pulse Ox 98.5 F 73 18 177/64 H 99 05/21/17 05:29 05/21/17 05:29 05/21/17 05:29 05/21/17 05:29 05/21/17 05:29 - Notes Notes: General Appearance: Well nourished, alert, cooperative, no acute distress, no obvious discomfort. Well-appearing. Vitals: reviewed, See vital signs table. Head: Obvious hematoma to left forehead with a small superficial laceration is approximately 1 cm. Eyes: PERRL, EOMI, Conjuctiva clear Mouth: No decreasd moisture Neck: Supple, no neck tenderness, full range of motion of the neck without pain. Back: No tenderness to palpation of thoracic or lumbar spine. No step-offs or deformities. Lungs: No wheezing, No rales, No rhonci, No accessory muscle use, good air exchange bilaterally. Heart: Normal rate, Regular rythm, No murmur, no rub Abdomen: Normal BS, soft, No rigidity, No abdominal tenderness, No guarding, no rebound, no abdominal masses, no organomegaly Extremities: strength 5/5 in all extremities, good pulses in all extremities, obvious deformities to both hands from rheumatoid arthritis. Patient has some tenderness to palpation mainly over the ulnar aspect of the hand. Wrist is nontender. Elbow and shoulder is nontender. Patient's pelvis is stable nontender palpation. No pain with full range of motion of both hips. Remainder of extremities are nontender to palpation., no edema. Skin: warm, dry, appropriate color, no rash Neuro: speech clear, oriented x 3, normal affect, responds appropriately to questions. Course - Re-evaluation Re-evalutation: 05/21/17 06:[address] scans are negative. I did x-ray her left hand she had ulnar aspect of left hand. She has no pain in the wrist. I did go back and talked her because it appears that she has an old fracture of the right distal radius. I will make sure that she does have a history of this. Patient says she does have a history of a fracture of the distal radius. I did re-palpate firmly over the entire wrist. She continues to have absolutely no pain to palpation over the wrist or with range of motion of the wrist. I do not suspect a new fracture on the wrist. I suspect everything on the x-rays from her previous fracture. At this time I feel the patient safe to be discharged home. She did have some rings on her third and fourth digits on the x-ray. Patient is unable to remove these rings because of the deformities in her fingers from rheumatoid arthritis. She has absolutely no pain to palpation over these fingers. At this time patient will be discharged home. I encouraged her return to ER if she has severe headache, vomiting, any worsening pain, or if she feels unwell. Patient agrees with plan will be discharged home. - Vital Signs Vital signs: Temp Pulse Resp BP Pulse Ox 98.5 F 73 18 177/64 H 99 05/21/17 05:29 05/21/17 05:29 05/21/17 05:29 05/21/17 05:29 05/21/17 05:29 Procedures - Laceration/Wound Repair left forehead Wound length (cm): 1 Wound's Depth, Shape: Superficial Laceration pre-procedure: Other - alcohol Wound explored: Clean Wound Repaired With: Dermabond Complications: No Discharge - Discharge Clinical Impression: Laceration, Contusion, Lung nodule < 6cm on CT Fall Qualifiers: Encounter type: initial encounter Qualified Code(s): W19.XXXA - Unspecified fall, initial encounter Condition: Good Disposition: HOME, SELF-CARE Additional Instructions: Your CT scan showed a small lung nodule. It is recommended that this be reevaluated in [address] scan to make sure it is not increasing in size. Please return to the ER immediately if you develop severe headache, vomiting, or feel unwell.
--- NOTE | 2017-05-21 06:07 | RADIOLOGY REPORT (SQ) ---
EXAM DESCRIPTION: CT HEAD WITHOUT COMPLETED DATE/TIME: 05/21/2017 5:49 am REASON FOR STUDY: trauma , fall, hit left side of the forehead. COMPARISON: CT brain 09/26/2015. TECHNIQUE: Axial images acquired through the brain without intravenous contrast. Images reviewed wi th bone, brain and subdural windows. Images stored on PACS. All CT scanners at this facility use dose modulation, iterative reconstruction, and/or weight based d osing when appropriate to reduce radiation dose to as low as reasonably achievable (ALARA). [facility]: Dose Right [facility]: CareDose [facility]: Dose Right [facility]: Teradose 4D [facility]: MonkeyFind RADIATION DOSE: Up-to-date CT equipment and radiation dose reduction techniques were employed. CTDIv ol: 64.6 mGy. DLP: 1163 mGy-cm.mGy. LIMITATIONS: None. FINDINGS: VENTRICLES: Prominent. CEREBRUM: No mass effect. No hemorrhage. No midline shift. Areas of low density in the white matte r most likely due to chronic micro-vascular ischemic change. No evidence for acute territorial infar ction. CEREBELLUM: No hemorrhage. No alteration of density. No evidence for acute infarction. EXTRAAXIAL SPACES: Age-related involutional change. No fluid collections. ORBITS AND GLOBE: Symmetrical contour of the globes. CALVARIUM: No depressed fracture. PARANASAL SINUSES: No air-fluid level. SOFT TISSUES: Soft tissue hematoma overlying the left frontal region. IMPRESSION: Soft tissue hematoma overlying the left frontal region. No acute intracranial hemorrhag e or depressed calvarial fracture. Chronic changes of atrophy and microvascular ischemia. TECHNICAL DOCUMENTATION: JOB ID: [id number] [facility] Quality ID # [id number]: Final reports with documentation of one or more dose reduction techniques (e.g., Au tomated exposure control, adjustment of the mA and/or kV according to patient size, use of iterative reconstruction technique) 2010 [employer]- All Rights Reserved
--- NOTE | 2017-05-21 06:17 | RADIOLOGY REPORT (SQ) ---
EXAM DESCRIPTION: CT CERVICAL SPINE WITHOUT COMPLETED DATE/TIME: 05/21/2017 5:49 am REASON FOR STUDY: trauma , fall. COMPARISON: None. TECHNIQUE: Axial images acquired through the cervical spine without intravenous contrast. Images re viewed with lung, soft tissue and bone windows. Reconstructed coronal and sagittal MPR images review ed. Images stored on PACS. All CT scanners at this facility use dose modulation, iterative reconstruction, and/or weight based d osing when appropriate to reduce radiation dose to as low as reasonably achievable (ALARA). [facility]: Dose Right [facility]: CareDose [facility]: Dose Right [facility]: Teradose 4D [facility]: Smart Netac RADIATION DOSE: Up-to-date CT equipment and radiation dose reduction techniques were employed. CTDIv ol: 20.7 mGy. DLP: 419 mGy-cm. mGy. LIMITATIONS: None. FINDINGS: ALIGNMENT: Anatomic. MINERALIZATION: Osteopenia. VERTEBRAL BODIES: No fractures or dislocation. DISCS: Multilevel disc space narrowing with osteophytes. FACETS, LATERAL MASSES, POSTERIOR ELEMENTS: Facet arthropathy. No fractures. No dislocation. HARDWARE: None in the spine. VISUALIZED RIBS: No fractures. LUNG APICES AND SOFT TISSUES: Motion artifact at the visualized lung apices. There is pleural scarri ng. There is a 4 mm pleural-based nodule at the left upper lobe. IMPRESSION: No CT evidence for acute fracture at the cervical spine. Degenerative changes. 4 mm pleural-based nodule at the left upper lobe. CT thorax in 12 months can be obtained to re-evalu ate. COMMENT: FLEISCHNER CRITERIA FOR FOLLOW-UP OF PULMONARY NODULES Incidentally detected new nodules in persons 35 or older. HIGH RISK: History of smoking or other known risk factors. <6mm single solid nodule: LOW RISK: no routine followup. HIGH RISK: optional CT 12 mo. TECHNICAL DOCUMENTATION: JOB ID: [id number] [facility]-64 Quality ID # [id number]: Final reports with documentation of one or more dose reduction techniques (e.g., Au tomated exposure control, adjustment of the mA and/or kV according to patient size, use of iterative reconstruction technique) 2010 [employer]- All Rights Reserved
--- NOTE | 2017-05-21 06:54 | RADIOLOGY REPORT (SQ) ---
EXAM DESCRIPTION: HAND LEFT 3 VIEWS COMPLETED DATE/TIME: 05/21/2017 6:37 am REASON FOR STUDY: trauma , fall. COMPARISON: None. EXAM PARAMETERS: NUMBER OF VIEWS: Three views. TECHNIQUE: AP, lateral and oblique radiographic images acquired of the left hand. LIMITATIONS: Severe osteopenia. The patient was unable to remove radiopaque rings and bracelet. FINDINGS: MINERALIZATION: Severe osteopenia, limiting bony detail. BONES: Degenerative changes at the distal and proximal interphalangeal joints, at the metacarpophalan geal joints, carpometacarpal joints and at the radiocarpal joint. Degenerative changes of the 5th me tacarpophalangeal joint with volar subluxation of the 5th proximal phalanx. There is a remote nonuni on fracture at the ulnar styloid. There is deformity at the distal radius, felt to be secondary to a prior trauma SOFT TISSUES: No significant soft tissue swelling. Radiopaque rings are seen at the 2nd and 3rd prox imal phalanges and also radiopaque bracelet at the distal forearm. IMPRESSION: Severe osteopenia, limiting bony detail. Severe degenerative changes at the left hand a nd wrist, please correlate with history of rheumatoid arthritis. Nonunion fracture at the ulnar styl oid. Deformity at the distal radius, felt to be secondary to prior trauma. Please correlate with po int tenderness to exclude acute injury. TECHNICAL DOCUMENTATION: JOB ID: [id number] [employer]- All Rights Reserved
[2017-05-21 08:06] VITALS: BP 146/54
== END 2017-05-21 08:07 | disposition home or self-care (01) ==
LOC: ER 05:24
DX: S01.81XA Laceration without foreign body of other part of head, initial encounter (principal); W19.XXXA Unspecified fall, initial encounter; Y93.89 Activity, other specified; Y92.129 Unspecified place in nursing home as the place of occurrence of the external cause; R91.1 Solitary pulmonary nodule; M06.9 Rheumatoid arthritis, unspecified; M79.642 Pain in left hand; I10 Essential (primary) hypertension; J44.9 Chronic obstructive pulmonary disease, unspecified; E11.9 Type 2 diabetes mellitus without complications; Z88.2 Allergy status to sulfonamides; Z86.73 Personal history of transient ischemic attack (TIA), and cerebral infarction without residual deficits
CPT/HCPCS: 70450; 72125; 99285

== ENCOUNTER 2017-05-25 14:10 | Emergency (ER) | payer MEDICARE, OTHER, MEDICAID ==
[2017-05-25 14:24] VITALS: BP 167/55
--- NOTE | 2017-05-25 14:51 | RADIOLOGY REPORT (SQ) ---
EXAM DESCRIPTION: CT HEAD WITHOUT COMPLETED DATE/TIME: 05/25/2017 2:43 pm REASON FOR STUDY: fall, head injury COMPARISON: 05/21/2017 TECHNIQUE: Axial images acquired through the brain without intravenous contrast. Images reviewed wi th bone, brain and subdural windows. Images stored on PACS. All CT scanners at this facility use dose modulation, iterative reconstruction, and/or weight based d osing when appropriate to reduce radiation dose to as low as reasonably achievable (ALARA). [facility]: Dose Right [facility]: CareDose [facility]: Dose Right [facility]: Teradose 4D [facility]: [employer] RADIATION DOSE: Up-to-date CT equipment and radiation dose reduction techniques were employed. CTDIv ol: 64.6 mGy. DLP: 1163 mGy-cm.mGy. LIMITATIONS: None. FINDINGS: VENTRICLES: Prominent. CEREBRUM: No masses. No hemorrhage. No midline shift. Areas of low density in the white matter mos t likely due to chronic micro-vascular ischemic change. No evidence for acute infarction. CEREBELLUM: No masses. No hemorrhage. No alteration of density. No evidence for acute infarction. EXTRAAXIAL SPACES: Age-related involutional change. No fluid collections. No masses. ORBITS AND GLOBE: No intra- or extraconal masses. Normal contour of globe without masses. CALVARIUM: No fracture. PARANASAL SINUSES: No fluid or mucosal thickening. SOFT TISSUES: Left frontal scalp hematoma. OTHER: No other significant finding. IMPRESSION: Chronic ischemic changes. Left frontal scalp hematoma. TECHNICAL DOCUMENTATION: JOB ID: [id number] Quality ID # [id number]: Final reports with documentation of one or more dose reduction techniques (e.g., Au tomated exposure control, adjustment of the mA and/or kV according to patient size, use of iterative reconstruction technique) 2010 [employer]- All Rights Reserved
--- NOTE | 2017-05-25 15:20 | ER Document Report ---
ED Fall - General Chief Complaint: Fall Stated Complaint: FALL/HEAD INJURY Time Seen by Provider: 05/25/17 14:18 Notes: The patient is a 71-year-old female on Plavix for CVAs, presents after she slipped out of her wheelchair and hit the back of her head. She did not have LOC and does not have a headache. She was sent from [facility] for further evaluation. She denies neck pain, hip pain, nausea, vomiting, numbness , tingling, blurry vision, chest pain, shortness of breath or syncope. TRAVEL OUTSIDE OF THE [place] IN LAST 30 DAYS: No - Related data Allergies/Adverse Reactions: Sulfa (Sulfonamide Antibiotics) Allergy (Intermediate, Verified 05/21/17 05:52) RASH methotrexate [Methotrexate] Adverse Reaction (Unknown, Verified 05/21/17 05:52) Hepatic dysfunction Past Medical History - General Information source: Patient - Social History Smoking Status: Never Smoker Frequency of alcohol use: None Drug Abuse: None Family History: Reviewed & Not Pertinent - Past Medical History Cardiac Medical History: Reports: Hx Hypercholesterolemia, Hx Hypertension Denies: Hx Heart Attack Pulmonary Medical History: Reports: Hx COPD, Hx Pneumonia Denies: Hx Asthma, Hx Tuberculosis Neurological Medical History: Reports: Hx Cerebrovascular Accident - USES WHEELCHAIR. 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 Denies: Hx Mastectomy, Hx Open Heart Surgery , Hx Pacemaker - Immunizations Hx Diphtheria, Pertussis, Tetanus Vaccination: Yes Hx Pneumococcal Vaccination: 09/01/12 Review of Systems - Review of Systems Notes: REVIEW OF SYSTEMS: CONSTITUTIONAL: -fevers, -chills EENT: -eye pain, -difficulty swallowing, -nasal congestion CARDIOVASCULAR:-chest pain, -syncope. RESPIRATORY: -cough, -SOB GASTROINTESTINAL: -abdominal pain, - nausea, -vomiting, -diarrhea GENITOURINARY: -dysuria, -hematuria MUSCULOSKELETAL: -back pain, -neck pain SKIN: +head contusion HEMATOLOGIC: -easy bruising or bleeding. LYMPHATIC: -swollen, enlarged glands. NEUROLOGICAL: -altered mental status or loss of consciousness, -headache, - neurologic symptoms PSYCHIATRIC: -anxiety, -depression. ALL OTHER SYSTEMS REVIEWED AND NEGATIVE. Physical Exam - Vital signs Vitals: Temp Pulse Resp BP Pulse Ox 98.3 F 70 16 167/55 H 97 05/25/17 14:05/25/17 14:05/25/17 14:05/25/17 14:05/25/17 14:23 - Notes Notes: PHYSICAL EXAMINATION: GENERAL: Well-appearing, well-nourished and in no acute distress. HEAD: left frontal scalp contusion, normocephalic. EYES: Pupils equal round and reactive to light, extraocular movements intact, sclera anicteric, conjunctiva are normal. ENT: nares patent, oropharynx clear without exudates. Moist mucous membranes. NECK: Normal range of motion, supple without lymphadenopathy LUNGS: Breath sounds clear to auscultation bilaterally and equal. No wheezes rales or rhonchi. HEART: Regular rate and rhythm without murmurs ABDOMEN: Soft, nontender, normoactive bowel sounds. No guarding, no rebound. No masses appreciated. EXTREMITIES: Normal range of motion, no pitting or edema. No cyanosis. NEUROLOGICAL: Cranial nerves grossly intact. Normal speech, normal gait. Normal sensory and motor exams. PSYCH: Normal mood, normal affect. SKIN: Ecchymosis around left eye (from prior fall) Course - Re-evaluation Re-evalutation: Patient appears well. Her head CT does not show any intracerebral hemorrhage or bleed. No skull fractures. Provide patient with anti-inflammatories and ice packs. No other injuries. Given return precautions and she understands. - Vital Signs Vital signs: Temp Pulse Resp BP Pulse Ox 98.3 F 70 16 167/55 H 97 05/25/17 14:23 05/25/17 14:23 05/25/17 14:05/25/17 14:05/25/17 14:23 - Diagnostic Test Radiology reviewed: Image reviewed, Reports reviewed Radiology results interpreted by me: CT Head: left frontal scalp hematoma Discharge - Discharge Clinical Impression: Head contusion Qualifiers: Encounter type: initial encounter Contusion of head detail: scalp Qualified Code(s): S00.03XA - Contusion of scalp, initial encounter Condition: Stable Disposition: HOME, SELF-CARE Additional Instructions: Contusion Your injury has resulted in a contusion -- a crushing of the deep tissues. No injury to important structures was detected during the physician's exam. Contusions vary in the amount of pain they cause, and in the length of time required for healing. Typically, the area will become bruised, and will remain painful to touch for two or three weeks. However, most patients are back to working and playing within a few days. After the initial period of rest and cold-packs, your symptoms (together with the doctor's recommendations) will determine how rapidly you can get back to full activity. Usually this means "do what feels okay, but don't do things that hurt." If re-examination was recommended, it's important to follow up as instructed. Call the doctor or return any time if pain increases, if swelling becomes severe, if you develop numbness or weakness in an injured extremity, or if any other alarming symptoms occur. Forms: Elevated Blood Pressure
== END 2017-05-25 16:50 | disposition home or self-care (01) ==
LOC: ER 14:10
DX: S00.03XA Contusion of scalp, initial encounter (principal); Z79.899 Other long term (current) drug therapy; W05.0XXA Fall from non-moving wheelchair, initial encounter
CPT/HCPCS: 70450; 99284

== ENCOUNTER 2017-07-18 13:26 | Emergency (ER) | payer MEDICARE, OTHER, MEDICAID ==
[2017-07-18 14:19] LABS: ABSOLUTE BASOPHILS # (AUTO) 0.1 10^3/uL (0.0-0.2); ABSOLUTE EOSINOPHILS # (AUTO) 0.4 10^3/uL (0.0-0.6); ABSOLUTE LYMPHOCYTES (AUTO) 1.1 10^3/uL (0.5-4.7); ABSOLUTE MONOCYTES (AUTO) 0.9 10^3/uL (0.1-1.4); ABSOLUTE NEUT (AUTO) 8.8 10^3/uL (1.7-8.2); BASOPHILS % (AUTO) 0.8 % (0-2); EOSINOPHILS % (AUTO) 3.4 % (0-6); HEMATOCRIT 29.5 % (36.0-47.0); HEMOGLOBIN 9.7 g/dL (12.0-15.5); HGB HCT DIFFERENCE -0.4; LYMPHOCYTES % (AUTO) 9.8 % (13-45); MEAN CORPUSCULAR HEMOGLOBIN 25.6 pg (27.0-33.4); MEAN CORPUSCULAR HGB CONC 32.9 g/dL (32.0-36.0); MEAN CORPUSCULAR VOLUME 78 fl (80-97); MONOCYTES % (AUTO) 7.8 % (3-13); RED CELL DISTRIBUTION WIDTH 18.7 % (11.5-14.0); SEGMENTED NEUTROPHILS % (AUTO) 78.2 % (42-78); WHITE BLOOD COUNT 11.2 10^3/uL (4.0-10.5)
--- NOTE | 2017-07-18 14:38 | ER Document Report ---
ED Dizziness/Weakness - General Chief Complaint: General Weakness Stated Complaint: WEAKNESS Time Seen by Provider: 07/18/17 14:28 Information source: Patient Notes: Pleasant 72-year-old female presents emergency department. She reports this is because she feels tired. She is not very forthright with details and may be unable to provide a full history. The note from nursing reports that she had an elevated potassium level of 6.1 and has been sent to the emergency department due to this. The patient seems unaware of that. She reports she may have had some blood drawn a month ago. She tells me she has been "tired" for "a long time". She denies any nausea, pain in her abdomen, pain in her chest, shortness of breath, headache, or other ailment. TRAVEL OUTSIDE OF THE [place] IN LAST 30 DAYS: No - Related Data Allergies/Adverse Reactions: Sulfa (Sulfonamide Antibiotics) Allergy (Intermediate, Verified 07/18/17 13:46) RASH methotrexate [Methotrexate] Adverse Reaction (Unknown, Verified 07/18/17 13:46) Hepatic dysfunction Past Medical History - Social History Smoking Status: Unknown if Ever Smoked Chew tobacco use (# tins/day): No Frequency of alcohol use: None Drug Abuse: None Family History: Reviewed & Not Pertinent - Past Medical History Cardiac Medical History: Reports: Hx Hypercholesterolemia, Hx Hypertension Denies: Hx Heart Attack Pulmonary Medical History: Reports: Hx COPD, Hx Pneumonia Denies: Hx Asthma, Hx Tuberculosis Neurological Medical History: Reports: Hx Cerebrovascular Accident - USES WHEELCHAIR. 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 Denies: Hx Mastectomy, Hx Open Heart Surgery , Hx Pacemaker - Immunizations Hx Diphtheria, Pertussis, Tetanus Vaccination: Yes Hx Pneumococcal Vaccination: 09/01/12 Review of Systems - Review of Systems Notes: The patient answers questions with some apparent degree of confusion or lack of detail. Review of systems was performed, but may not be fully reliable. REVIEW OF SYSTEMS: CONSTITUTIONAL : Denies fever, chills, or sweats. She does confirm that she is "tired". EENT: Denies eye, ear, throat, or mouth pain or symptoms. Denies nasal or sinus congestion or discharge. CARDIOVASCULAR: Denies chest pain. Denies palpitations or racing or irregular heart beat. RESPIRATORY: Denies cough, cold, or chest congestion. Denies shortness of breath, difficulty breathing, or wheezing. GASTROINTESTINAL: Denies abdominal pain or distention. Denies nausea, vomiting , or diarrhea. GENITOURINARY: Denies difficulty urinating, painful urination, burning, frequency, blood in urine, or discharge. MUSCULOSKELETAL: Denies back or neck pain or stiffness. Denies joint pain or swelling. SKIN: Patient has some degree of skin irritation and rash on her lower extremities, particularly the left ankle, which the patient confirms being present. LYMPHATIC: Denies swollen, enlarged glands. NEUROLOGICAL: Patient reports feeling tired. She denies any focal weakness. She denies passing out or loss of consciousness. Denies dizziness or lightheadedness. Denies headache. ALL OTHER SYSTEMS REVIEWED AND NEGATIVE. Physical Exam - Vital signs Vitals: Temp Pulse Resp BP Pulse Ox 97.8 F 79 16 149/76 H 99 07/18/17 13:35 07/18/17 13:35 07/18/17 13:35 07/18/17 13:35 07/18/17 13:35 - Notes Notes: PHYSICAL EXAMINATION: GENERAL: Appears stated age. Alert and communicative, though with some possible limitations. No acute distress. HEAD: Atraumatic, normocephalic. ENT: Nares patent, oropharynx clear without exudates. Moist mucous membranes. NECK: Normal range of motion, supple without lymphadenopathy LUNGS: Breath sounds clear to auscultation bilaterally and equal. No wheezes rales or rhonchi. HEART: Regular rate and rhythm without murmurs ABDOMEN: Soft, nontender, nondistended abdomen. No guarding, no rebound. No masses appreciated. Musculoskeletal: Normal range of motion, no pitting or edema. No cyanosis. NEUROLOGICAL: Equal gusset edger strength. 5/5 strength in all 4 extremities. Sensation intact in all 4 extremities. Communicative, though with some possible cognitive limitations. Cranial nerves grossly intact. PSYCH: Pleasant, interactive, cooperative, though patient seems to lack specific details in her history.. SKIN: Warm, Dry, minor skin irritation, rash, on her lower extremities, particularly the left ankle. Course - Re-evaluation Re-evalutation: 07/18/17 15:11 Pleasant 72-year-old lady who appears to feel overall comfortable but does report she is tired. We are told she had a potassium level earlier today of 6.1. I have seen this in the record. A repeat here in the emergency department again sees a potassium of 6.1. She has slightly elevated BUN and creatinine, above her usual baseline. An EKG obtained at 1339 shows normal sinus rhythm with a rate of 70, normal intervals and a normal axis. There are no ischemic changes. T waves overall appear normal. At K=6.1, no EKG changes, and this being not a completely new or acute situation , I do not see an indication for treatment with Kayexalate or other medications. We will give her a liter of normal saline over the next 2 hours to dilute down her potassium level and to increase her kidney function. 07/18/17 17:15 I have called and spoken with the patient's primary physician's office. They are comfortable with the patient being discharged back to the nursing care facility and having them follow up with her. They did ask that I speak with the hospitalist about any additional inpatient services. I have spoken with Dr. Viramontes who suggested I discontinue the patient's lisinopril. The patient has been treated with 1 L of normal saline for her kidney function and elevated potassium level. She does appear stable for discharge with close follow-up. - Vital Signs Vital signs: Temp Pulse Resp BP Pulse Ox 97.9 F 79 18 157/80 H 100 07/18/17 16:45 07/18/17 16:45 07/18/17 16:45 07/18/17 16:45 07/18/17 16:45 - Laboratory Result Diagrams: 07/18/17 14:03 07/18/17 14:03 Laboratory results interpreted by me: 07/18/17 07/18/17 07/18/17 14:03 14:03 15:00 WBC 11.2 H Hgb 9.7 L Hct 29.5 L MCV 78 L MCH 25.6 L RDW 18.7 H Seg Neutrophils % 78.2 H Lymphocytes % 9.8 L Absolute Neutrophils 8.8 H Potassium 6.1 H* Chloride 110 H Carbon Dioxide 19 L BUN 44 H Creatinine 1.62 H Est GFR ( Amer) 38 L Est GFR (Non-Af Amer) 31 L Glucose 188 H Alkaline Phosphatase 138 H Ur Leukocyte Esterase TRACE H Discharge - Discharge Clinical Impression: Hyperkalemia, Renal insufficiency Condition: Good Disposition: HOME, SELF-CARE Instructions: Kidney Function Abnormality ([facility]) Additional Instructions: Your kidney function has been slowly getting slightly worse. Your potassium level today was 6.1. With your elevated kidney function test, we gave you 1 L of normal saline to improve your hydration status and encourage excretion of potassium. We called and spoke with your primary physician's office. They will recheck your potassium later this week. You may need to follow-up with a kidney doctor. We spoke with another internal medicine doctor who advised that we discontinue your lisinopril. Stop taking lisinopril. Increase Norvasc from 2.5 mg to 5 mg once per day. Return to the emergency department if you feel more weak or if you have any other urgent concerns. Prescriptions: Amlodipine Besylate [Norvasc 5 mg Tablet] 5 mg PO DAILY #10 tablet Referrals: PERCY CRANE MD [Primary Care Provider] - Follow up in 3-5 days
[2017-07-18 14:44] LABS: ALANINE AMINOTRANSFERASE 21 U/L (9-52); ALBUMIN 3.8 g/dL (3.5-5.0); ALKALINE PHOSPHATASE 138 U/L (38-126); ANION GAP 13 (5-19); ASPARTATE AMINO TRANSFERASE 23 U/L (14-36); BILIRUBIN,DIRECT 0.4 mg/dL (0.0-0.4); BILIRUBIN,TOTAL 0.5 mg/dL (0.2-1.3); BLOOD UREA NITROGEN 44 mg/dL (7-20); CALCIUM 9.5 mg/dL (8.4-10.2); CARBON DIOXIDE 19 mmol/L (22-30); CHLORIDE 110 mmol/L (98-107); CREATININE RESULT 1.62 mg/dL (0.52-1.25); GLUCOSE 188 mg/dL (75-110); SODIUM 141.7 mmol/L (137-145); TOTAL PROTEIN 7.7 g/dL (6.3-8.2)
[2017-07-18 14:54] LABS: POTASSIUM 6.1 mmol/L (3.6-5.0)
[2017-07-18] MEDS ORDERED: NORMAL SALINE 1000 ML 1,000 ML IV ONE (14:59)
[2017-07-18 15:47] LABS: APPEARANCE,URINE SLIGHTLY-CLOUDY; BILIRUBIN,URINE NEGATIVE (NEGATIVE); GLUCOSE, URINE NEGATIVE (NEGATIVE); KETONES,URINE NEGATIVE (NEGATIVE); LEUKOCYTE ESTERASE,URINE TRACE (NEGATIVE); NITRITE,URINE NEGATIVE (NEGATIVE); PROTEIN,URINE NEGATIVE (NEGATIVE); UROBILINOGEN,URINE NEGATIVE mg/dL (<2.0)
[2017-07-18 16:45] VITALS: BP 157/80
--- NOTE | 2017-07-18 18:18 | EKG REPORT ---
SEVERITY:- NORMAL ECG - SINUS RHYTHM : Confirmed by: Aida Iraheta MD 18-Jul-2017 18:18:01
== END 2017-07-18 18:30 | disposition home or self-care (01) ==
LOC: ER 13:26
DX: E87.5 Hyperkalemia (principal); N28.9 Disorder of kidney and ureter, unspecified; R53.83 Other fatigue; R21 Rash and other nonspecific skin eruption; I10 Essential (primary) hypertension; J44.9 Chronic obstructive pulmonary disease, unspecified; Z86.73 Personal history of transient ischemic attack (TIA), and cerebral infarction without residual deficits; Z88.2 Allergy status to sulfonamides
CPT/HCPCS: 93005; 99285; 96360; 51701; 36415; 83735; 85025; 80053; 81001; 93010; J7030

== ENCOUNTER → 2017-08-17 | Day surgery (SDC) | payer MEDICARE, OTHER, MEDICAID ==
[~2017-08-17] MED LIST: LIDOCAINE 1%/EPINEPHRINE INJ 20 ML VIAL ONE
--- NOTE | 2017-08-17 11:57 | PDOC DISCHARGE SUMMARY ---
Discharge Summary (SDC) - Discharge Final Diagnosis: Microcalcification left breast Date of Surgery: 08/17/17 Discharge Date: 08/17/17 Condition: Good Treatment or Instructions: Patient to wear a compressive bra; follow-up with Dr. bull at [facility] in 1-2 weeks; take pain medication such as Tylenol or Motrin as needed. Preoperative medications diet and activity. Referrals: PERCY CRANE MD [Primary Care Provider] - Discharge Diet: As Tolerated Discharge Activity: Activity As Tolerated Home Care Assistance: None Needed Report the Following to Your Physician Immediately: Shortness of Breath, Increase in Pain, Fever over 101 Degrees
--- NOTE | 2017-08-17 12:02 | Operative Report ---
Operative Report DATE OF SURGERY: 08/17/17 PREOPERATIVE DIAGNOSIS: Cluster microcalcifications left breast POSTOPERATIVE DIAGNOSIS: Same OPERATION: 1. Stereotactically directed incisional myotomy core biopsies 11 central aspect left breast. 2. Placement of clip marker central aspect left breast. 3. Interpretation of intra-operative mammography SURGEON: HATTIE CUEVAS ANESTHESIA: Local TISSUE REMOVED OR ALTERED: Multiple cores with microcalcifications left breast COMPLICATIONS: None ESTIMATED BLOOD LOSS: Minimal INTRAOPERATIVE FINDINGS: See below PROCEDURE: The patient was taken from the radiology holding area to the stereotactic suite where she was placed in the prone, slight right side up position with the left breast into compression using a CC approach. Surgical plan surgical timeout were conducted. The target microcalcifications were a generous cluster in the central aspect of the left breast. Stereotactic views were obtained. The surface of the left breast was prepped with Betadine, anesthetized 1% lidocaine with epinephrine. A myotomy was made with 11 blade, hemostat used to spread the skin, and the mammotome advanced to the appropriate depth. Pre-and post fire images, stereotactically generated, biopsy device. Proceeded to obtain approximately 11 cores from the left breast with good specimen acquisition. Cores were harvested, placed on a Jayda dish and imaged real-time in the portable upright box and shown to contain multiple areas of microcalcifications. A bullet clip was deployed into the biopsy cavity but drifted to the anterior aspect of the breast. At this point felt the operation was complete. The introducer sheath was removed from the patient's breast compression dressing applied. Her graft she tolerated the procedure well. There were no complications. Discharge instruction provided.
--- NOTE | 2017-08-22 17:03 | WOMENS IMAGING REPORT ---
EXAM DESCRIPTION: STEREO BREAST BX; LEFT DIG DX MAMMO NO CHG COMPLETED DATE/TIME: 08/17/2017 1:08 pm; 08/17/2017 1:09 pm REASON FOR STUDY: R92.0 MAMMOGRAPHIC MICROCALCIFICATION FOUND ON DX IMAGING OF BRST; CALCIFICATIONS R92.0 MAMMOGRAPHIC MICROCALCIFICATION FOUND ON DX IMAGING OF R92.2 INCONCLUSIVE MAMMOGRAM COMPARISON: Pre biopsy mammograms unavailable LIMITATIONS: None. PROCEDURE: Vacuum-assisted stereotactic-guided biopsy of the lesion in the left breast performed by Dr. Gao who also targeted the lesion. Using stereotactic guidance, a vacuum-assisted core biopsy of the targeted lesion was performed. A p ellet clip was deployed at the biopsy site. Post procedure image reveals the clip at the biopsy site . TECHNIQUE: Images from the stereotactic unit acquired during the procedure. Specimen radiography performed. Yes. Post- procedure image acquired post-clip placement. Yes. Post procedure 2 view mammograms performed in the mammography suite. Yes. FINDINGS: SPECIMEN RADIOGRAPH:Calcifications identified.. POST PROCEDURE MAMMOGRAMS FOR MARKER PLACEMENT: Yes. POST PROCEDURE MAMMOGRAM: Clip is in expected location. Moderate hematoma. PATHOLOGY: Fibrocystic changes associated with microcalcifications. Negative for atypia or malignanc y CONCORDANT: Yes. The operating surgeon was notified of the findings. IMPRESSION: SUCCESSFUL STEREOTACTIC-GUIDED BIOPSY OF LESION IN THE LEFT BREAST. BIOPSY RESULTS ARE CONCORDANT WITH IMAGING FINDINGS. FOLLOW-UP: PER SURGEON TECHNICAL DOCUMENTATION: JOB ID: [id number] [employer]- All Rights Reserved
== END ==
LOC: RAD 10:10
PROVIDERS: ATTEND Surgery
PROC: 0HBU3ZX Excision of Left Breast, Percutaneous Approach, Diagnostic (ICD-10-PCS; principal; 2017-08-17)
DX: R92.0 Mammographic microcalcification found on diagnostic imaging of breast (principal); N60.12 Diffuse cystic mastopathy of left breast; Z88.6 Allergy status to analgesic agent; Z88.2 Allergy status to sulfonamides; E11.9 Type 2 diabetes mellitus without complications; Z86.73 Personal history of transient ischemic attack (TIA), and cerebral infarction without residual deficits; L40.50 Arthropathic psoriasis, unspecified; I10 Essential (primary) hypertension; E78.5 Hyperlipidemia, unspecified; N28.9 Disorder of kidney and ureter, unspecified; Z79.02 Long term (current) use of antithrombotics/antiplatelets; Z79.899 Other long term (current) drug therapy; Z79.4 Long term (current) use of insulin
CPT/HCPCS: 88305 ×2; 88342; 19081; J3490

== ENCOUNTER 2017-12-04 19:47 | Emergency (ER) | payer MEDICARE, OTHER ==
--- NOTE | 2017-12-04 21:04 | RADIOLOGY REPORT (SQ) ---
EXAM DESCRIPTION: CHEST SINGLE VIEW COMPLETED DATE/TIME: 12/04/2017 8:49 pm REASON FOR STUDY: ams, cough COMPARISON: 09/01/2012 EXAM PARAMETERS: NUMBER OF VIEWS: One view. TECHNIQUE: Single frontal radiographic view of the chest acquired. RADIATION DOSE: NA LIMITATIONS: None. FINDINGS: LUNGS AND PLEURA: No opacities, masses or pneumothorax. No pleural effusion. Stable eleva brenton left hemidiaphragm. MEDIASTINUM AND HILAR STRUCTURES: No masses. Contour normal. HEART AND VASCULAR STRUCTURES: Heart normal in size. Normal vasculature. BONES: No acute findings. HARDWARE: None in the chest. OTHER: No other significant finding. IMPRESSION: NO ACUTE RADIOGRAPHIC FINDING IN THE CHEST. TECHNICAL DOCUMENTATION: JOB ID: [id number] [employer]- All Rights Reserved Reading location - IP/workstation name: [email or web address]
--- NOTE | 2017-12-04 21:06 | ER Document Report ---
ED General - General Stated Complaint: ALTERED MENTAL STATUS Time Seen by Provider: 12/04/17 20:01 Cannot obtain history due to: Dementia Notes: Patient is a 72 year old female who presents with concerns of altered mental status from her nursing facility. The patient herself denies any complaints states "I just have to pee" when asked her if anything is bothering her. She denies any cough, shortness of breath, chest pain, headache, neck pain, focal weakness or numbness. She denies any dysuria. She has apparently been treated on 2 separate occasions for urinary tract infection by her attending physician at the nursing facility without resolution of apparently her change in behavior that the facility has noted. Patient is oriented only to person and place at time of assessment. TRAVEL OUTSIDE OF THE [place] IN LAST 30 DAYS: No - Related Data Allergies/Adverse Reactions: Sulfa (Sulfonamide Antibiotics) Allergy (Intermediate, Verified 07/18/17 13:46) RASH silver [From Tegaderm AG Mesh] Allergy (Verified 07/18/17 17:43) methotrexate [Methotrexate] Adverse Reaction (Unknown, Verified 07/18/17 13:46) Hepatic dysfunction Past Medical History - General Information source: Patient Cannot obtain history due to: Dementia - Social History Smoking Status: Never Smoker Frequency of alcohol use: None Drug Abuse: None Lives with: Intermediate Family History: Reviewed & Not Pertinent - Past Medical History Cardiac Medical History: Reports: Hx Hypercholesterolemia, Hx Hypertension Denies: Hx Heart Attack Pulmonary Medical History: Reports: Hx COPD, Hx Pneumonia Denies: Hx Asthma, Hx Tuberculosis Neurological Medical History: Reports: Hx Cerebrovascular Accident - USES WHEELCHAIR. 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 Denies: Hx Mastectomy, Hx Open Heart Surgery , Hx Pacemaker - Immunizations Hx Diphtheria, Pertussis, Tetanus Vaccination: Yes Hx Pneumococcal Vaccination: 09/01/12 Review of Systems - Review of Systems Notes: Constitutional: Negative for fever. HENT: Negative for sore throat. Eyes: Negative for visual changes. Cardiovascular: Negative for chest pain. Respiratory: Negative for shortness of breath. Gastrointestinal: Negative for abdominal pain, vomiting or diarrhea. Genitourinary: Negative for dysuria. Musculoskeletal: Negative for back pain. Skin: Negative for rash. Neurological: Negative for headaches, weakness or numbness. 10 point ROS negative except as marked above and in HPI. Physical Exam - Vital signs Vitals: Temp Pulse Resp Pulse Ox 99.3 F 80 18 98 12/04/17 19:47 12/04/17 19:47 12/04/17 19:47 12/04/17 19:47 Interpretation: Normal Notes: PHYSICAL EXAMINATION: GENERAL: Well-appearing, well-nourished and in no acute distress. HEAD: Atraumatic, normocephalic. EYES: Pupils equal round and reactive to light, extraocular movements intact, sclera anicteric, conjunctiva are normal. ENT: nares patent, oropharynx clear without exudates. Moist mucous membranes. NECK: Normal range of motion, supple without lymphadenopathy LUNGS: Breath sounds clear to auscultation bilaterally and equal. No wheezes rales or rhonchi. HEART: Regular rate and rhythm without murmurs ABDOMEN: Soft, nontender, normoactive bowel sounds. No guarding, no rebound. No masses appreciated. EXTREMITIES: Normal range of motion, no pitting or edema. No cyanosis. NEUROLOGICAL: No focal neurological deficits. Moves all extremities spontaneously and on command. PSYCH: Alert, oriented to person and place but not year, president, or her date of SKIN: Warm, Dry, normal turgor, no rashes or lesions noted. Course - Re-evaluation Re-evalutation: 12/04/17 21:05 Patient presents with complaints of intermittent confusion, has apparently been diagnosed and treated for urinary tract infection on 2 separate occasions by her outpatient physician with similar symptoms in the past. She is very pleasant on contact, alert, oriented, and denies any complaints. Will obtain basic labs and reassess the patient - Vital Signs Vital signs: Temp Pulse Resp BP Pulse Ox 99.3 F 80 18 98 12/04/17 23:54 12/04/17 19:47 12/04/17 23:54 12/04/17 23:54 - Laboratory Result Diagrams: 12/04/17 21:05 12/04/17 21:05 Laboratory results interpreted by me: 12/04/17 12/04/17 12/04/17 21:05 21:05 22:06 WBC 11.8 H Hgb 9.3 L Hct 29.7 L MCV 75 L MCH 23.3 L MCHC 31.2 L RDW 18.1 H Lymphocytes % 11.8 L Absolute Neutrophils 8.8 H Absolute Eosinophils 0.7 H BUN 29 H Est GFR (Non-Af Amer) 58 L Glucose 265 H Urine Protein 30 H Urine Glucose (UA) >=500 H Urine Blood SMALL H - Diagnostic Test Radiology reviewed: Image reviewed, Reports reviewed Radiology results interpreted by me: 12/04/17 23:15 Chest x-ray: No acute infiltrate or pneumothorax - EKG Interpretation by Me Additional EKG results interpreted by me: 12/04/17 23:16 Normal sinus rhythm. Rate 76. No ST elevations or depressions. PVCs. QTC is 459. Discharge - Discharge Clinical Impression: Altered mental status Qualifiers: Altered mental status type: disorientation Qualified Code(s): R41.0 - Disorientation, unspecified Condition: Good Disposition: HOME-SNF (ED ONLY) Additional Instructions: Your labs are baseline. Your urine does not show any evidence of infection. Your chest x-ray is clear. Return for any additional concerns you may have. Referrals: PERCY CRANE MD [Primary Care Provider] - Follow up as needed
[2017-12-04 21:14] LABS: ABSOLUTE BASOPHILS # (AUTO) 0.1 10^3/uL (0.0-0.2); ABSOLUTE EOSINOPHILS # (AUTO) 0.7 10^3/uL (0.0-0.6); ABSOLUTE LYMPHOCYTES (AUTO) 1.4 10^3/uL (0.5-4.7); ABSOLUTE MONOCYTES (AUTO) 0.9 10^3/uL (0.1-1.4); ABSOLUTE NEUT (AUTO) 8.8 10^3/uL (1.7-8.2); BASOPHILS % (AUTO) 0.6 % (0-2); EOSINOPHILS % (AUTO) 5.6 % (0-6); HEMATOCRIT 29.7 % (36.0-47.0); HEMOGLOBIN 9.3 g/dL (12.0-15.5); LYMPHOCYTES % (AUTO) 11.8 % (13-45); MEAN CORPUSCULAR HEMOGLOBIN 23.3 pg (27.0-33.4); MEAN CORPUSCULAR HGB CONC 31.2 g/dL (32.0-36.0); MEAN CORPUSCULAR VOLUME 75 fl (80-97); MONOCYTES % (AUTO) 7.7 % (3-13); PLATELET COUNT 329 10^3/uL (150-450); RED BLOOD COUNT 3.98 10^6/uL (3.72-5.28); RED CELL DISTRIBUTION WIDTH 18.1 % (11.5-14.0); SEGMENTED NEUTROPHILS % (AUTO) 74.3 % (42-78); TOTAL CELLS COUNTED % (AUTO) 100 %; WHITE BLOOD COUNT 11.8 10^3/uL (4.0-10.5)
[2017-12-04 21:31] LABS: ANION GAP 7 (5-19); BLOOD UREA NITROGEN 29 mg/dL (7-20); CALCIUM 9.4 mg/dL (8.4-10.2); CARBON DIOXIDE 28 mmol/L (22-30); CHLORIDE 103 mmol/L (98-107); GLUCOSE 265 mg/dL (75-110); POTASSIUM 4.6 mmol/L (3.6-5.0)
[2017-12-04 22:21] LABS: APPEARANCE,URINE CLEAR; BILIRUBIN,URINE NEGATIVE (NEGATIVE); COLOR,URINE COLORLESS; GLUCOSE, URINE >=500 mg/dL (NEGATIVE); KETONES,URINE NEGATIVE (NEGATIVE); LEUKOCYTE ESTERASE,URINE NEGATIVE (NEGATIVE); NITRITE,URINE NEGATIVE (NEGATIVE); PROTEIN,URINE 30 mg/dL (NEGATIVE); URINE SPECIFIC GRAVITY 1.006; UROBILINOGEN,URINE NEGATIVE mg/dL (<2.0)
[2017-12-05 07:54] VITALS: BP 143/70
--- NOTE | 2017-12-05 09:10 | EKG REPORT ---
SEVERITY:- ABNORMAL ECG - SINUS RHYTHM MULTIPLE ATRIAL PREMATURE COMPLEXES : Confirmed by: Carolyn Mcneill 05-Dec-2017 09:09:32
== END 2017-12-05 02:35 ==
LOC: ER 19:47
DX: R41.0 Disorientation, unspecified (principal)
CPT/HCPCS: 36415; 71045; 80048; 81001; 85025; 87086; 87088; 87186; 93005; 93010; 99285

== ENCOUNTER 2018-01-22 18:54 | Emergency (ER) | payer MEDICARE, OTHER ==
--- NOTE | 2018-01-22 19:51 | ER Document Report ---
ED General - General Chief Complaint: Altered Mental Status Stated Complaint: ALTERED MENTAL STATUS Time Seen by Provider: 01/22/18 19:46 Mode of Arrival: Medic Information source: [facility] Records, Outside Facility Records Cannot obtain history due to: Dementia Notes: This is a 72-year-old female with a history of DM, CVA, atrial fibrillation, dementia, who is brought into the emergency room by EMS from [facility] because of decreased responsiveness. Patient reportedly said she "does not feel well" to EMS. Patient denies any pain in the emergency room. TRAVEL OUTSIDE OF THE [place] IN LAST 30 DAYS: No - HPI Onset: Just prior to arrival Onset/Duration: Gradual Quality of pain: No pain Severity: None Pain Level: Denies Associated symptoms: denies: Chest pain, Fever, Shortness of breath Exacerbated by: Denies Relieved by: Denies Similar symptoms previously: Yes Recently seen / treated by doctor: Yes - Related Data Allergies/Adverse Reactions: Sulfa (Sulfonamide Antibiotics) Allergy (Intermediate, Verified 07/18/17 13:46) RASH silver [From Tegaderm AG Mesh] Allergy (Verified 07/18/17 17:43) methotrexate [Methotrexate] Adverse Reaction (Unknown, Verified 07/18/17 13:46) Hepatic dysfunction Past Medical History - General Information source: [facility] Records, Outside Facility Records - Social History Smoking Status: Never Smoker Cigarette use (# per day): No Chew tobacco use (# tins/day): No Frequency of alcohol use: None Drug Abuse: None Lives with: [facility] Family History: Reviewed & Not Pertinent Patient has suicidal ideation: No Patient has homicidal ideation: No - Past Medical History Cardiac Medical History: Reports: Hx Hypercholesterolemia, Hx Hypertension Denies: Hx Heart Attack Pulmonary Medical History: Reports: Hx COPD, Hx Pneumonia Denies: Hx Asthma, Hx Tuberculosis Neurological Medical History: Reports: Hx Cerebrovascular Accident - USES WHEELCHAIR. 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 Denies: Hx Mastectomy, Hx Open Heart Surgery , Hx Pacemaker - Immunizations Hx Diphtheria, Pertussis, Tetanus Vaccination: Yes Hx Pneumococcal Vaccination: 09/01/12 Review of Systems - Review of Systems Constitutional: No symptoms reported EENT: No symptoms reported Cardiovascular: No symptoms reported Respiratory: No symptoms reported Gastrointestinal: No symptoms reported Genitourinary: No symptoms reported Female Genitourinary: No symptoms reported Musculoskeletal: No symptoms reported Skin: No symptoms reported Hematologic/Lymphatic: No symptoms reported Neurological/Psychological: No symptoms reported Physical Exam - Vital signs Vitals: Resp Pulse Ox 16 99 01/22/18 19:02 01/22/18 19:02 Notes: Physical exam: GENERAL: 82-year-old female, lying in stretcher, does answer questions briefly ( yes or no), denies any acute pain. Her temperature is 97.3 rectally HEAD: Atraumatic, normocephalic. EYES: Pupils equal round and reactive to light, extraocular movements intact, sclera anicteric, conjunctiva are normal. ENT: TMs normal, nares patent, oropharynx clear without exudates. Moist mucous membranes. NECK: Normal range of motion, supple without obvious mass or JVD. LUNGS: Breath sounds clear to auscultation bilaterally and equal. No wheezes rales or rhonchi. HEART: Regular rate and rhythm without murmurs, rubs or gallops. ABDOMEN: Soft, normoactive bowel sounds. No tenderness to palpation. No guarding, no rebound. No masses appreciated. Rectal exam: Significant stool in vault, brown stool, sent for study EXTREMITIES: Normal range of motion, no pitting or edema. No clubbing or cyanosis. NEUROLOGICAL: Cranial nerves II through XII grossly intact. Normal speech, moving all extremities. PSYCH: Normal mood, normal affect. SKIN: Chronic raised rash on the back and lower extremities (consistent with eczema or psoriasis). Course - Re-evaluation Re-evalutation: 01/22/18 19:51 In the emergency room: Manual disimpaction IV fluids Straight catheter UA - Vital Signs Vital signs: Temp Pulse Resp BP Pulse Ox 97.3 F 13 136/51 H 100 01/22/18 20:20 01/22/18 23:02 01/22/18 23:02 01/22/18 23:02 - Laboratory Result Diagrams: 01/22/18 20:14 01/22/18 20:14 Laboratory results interpreted by me: 01/22/18 01/22/18 01/22/18 20:14 20:14 20:14 Hgb 9.8 L Hct 30.9 L MCV 75 L MCH 23.7 L MCHC 31.8 L RDW 19.1 H Eosinophils % 9.0 H Absolute Eosinophils 0.9 H Potassium 5.2 H BUN 30 H Est GFR ( Amer) 54 L Est GFR (Non-Af Amer) 44 L Glucose 186 H Urine Protein 100 H Urine Glucose (UA) >=500 H - Diagnostic Test Radiology reviewed: Image reviewed, Reports reviewed - Chest x-ray shows no obvious infiltrate. No significant change from previous. Discharge - Discharge Clinical Impression: Dehydration Condition: Stable Disposition: HOME, SELF-CARE Additional Instructions: Patient's labs were consistent with some mild dehydration. Chest x-ray was stable and the urine did not show evidence of a UTI. Patient did have a manual disimpaction for some constipation while in the ER. The plan would be to continue current medicines. Encourage fluids Follow-up with the primary care doctor.
[2018-01-22] MEDS ORDERED: NORMAL SALINE 500 ML IV ONE (19:52)
[2018-01-22 20:27] LABS: ABSOLUTE BASOPHILS # (AUTO) 0.2 10^3/uL (0.0-0.2); ABSOLUTE EOSINOPHILS # (AUTO) 0.9 10^3/uL (0.0-0.6); ABSOLUTE LYMPHOCYTES (AUTO) 1.6 10^3/uL (0.5-4.7); ABSOLUTE MONOCYTES (AUTO) 1.1 10^3/uL (0.1-1.4); ABSOLUTE NEUT (AUTO) 6.6 10^3/uL (1.7-8.2); BASOPHILS % (AUTO) 1.6 % (0-2); HEMATOCRIT 30.9 % (36.0-47.0); HEMOGLOBIN 9.8 g/dL (12.0-15.5); LYMPHOCYTES % (AUTO) 15.3 % (13-45); MEAN CORPUSCULAR HEMOGLOBIN 23.7 pg (27.0-33.4); MEAN CORPUSCULAR HGB CONC 31.8 g/dL (32.0-36.0); MEAN CORPUSCULAR VOLUME 75 fl (80-97); MONOCYTES % (AUTO) 10.3 % (3-13); PLATELET COUNT 348 10^3/uL (150-450); RED BLOOD COUNT 4.15 10^6/uL (3.72-5.28); RED CELL DISTRIBUTION WIDTH 19.1 % (11.5-14.0); SEGMENTED NEUTROPHILS % (AUTO) 63.8 % (42-78); TOTAL CELLS COUNTED % (AUTO) 100 %; WHITE BLOOD COUNT 10.4 10^3/uL (4.0-10.5)
[2018-01-22 20:33] LABS: APPEARANCE,URINE CLEAR; BILIRUBIN,URINE NEGATIVE (NEGATIVE); COLOR,URINE YELLOW; GLUCOSE, URINE >=500 mg/dL (NEGATIVE); KETONES,URINE NEGATIVE (NEGATIVE); LEUKOCYTE ESTERASE,URINE NEGATIVE (NEGATIVE); NITRITE,URINE NEGATIVE (NEGATIVE); PROTEIN,URINE 100 mg/dL (NEGATIVE); URINE SPECIFIC GRAVITY 1.017; UROBILINOGEN,URINE NEGATIVE mg/dL (<2.0)
[2018-01-22 20:49] LABS: ALANINE AMINOTRANSFERASE 14 U/L (9-52); ALBUMIN 3.7 g/dL (3.5-5.0); ALKALINE PHOSPHATASE 100 U/L (38-126); ANION GAP 13 (5-19); ASPARTATE AMINO TRANSFERASE 17 U/L (14-36); BILIRUBIN,DIRECT 0.2 mg/dL (0.0-0.4); BILIRUBIN,TOTAL 0.2 mg/dL (0.2-1.3); BLOOD UREA NITROGEN 30 mg/dL (7-20); CALCIUM 10.2 mg/dL (8.4-10.2); CARBON DIOXIDE 27 mmol/L (22-30); CHLORIDE 103 mmol/L (98-107); GLUCOSE 186 mg/dL (75-110); POTASSIUM 5.2 mmol/L (3.6-5.0); SODIUM 143.3 mmol/L (137-145); TOTAL PROTEIN 7.2 g/dL (6.3-8.2)
--- NOTE | 2018-01-22 21:29 | RADIOLOGY REPORT (SQ) ---
EXAM DESCRIPTION: CHEST SINGLE VIEW COMPLETED DATE/TIME: 01/22/2018 9:18 pm REASON FOR STUDY: decreased responsiveness COMPARISON: 01/10/2018 EXAM PARAMETERS: NUMBER OF VIEWS: One view. TECHNIQUE: Single frontal radiographic view of the chest acquired. RADIATION DOSE: NA LIMITATIONS: None. FINDINGS: LUNGS AND PLEURA: Parenchymal paucity at the left base stable. Right lung is clear. MEDIASTINUM AND HILAR STRUCTURES: No masses. Contour normal. HEART AND VASCULAR STRUCTURES: Heart normal in size. Normal vasculature. BONES: No acute findings. HARDWARE: None in the chest. OTHER: No other significant finding. IMPRESSION: Stable left basilar opacity. TECHNICAL DOCUMENTATION: JOB ID: [id number] [employer]- All Rights Reserved Reading location - IP/workstation name: [email or web address]
--- NOTE | 2018-01-23 02:39 | RADIOLOGY REPORT (SQ) ---
EXAM DESCRIPTION: CT HEAD WITHOUT CLINICAL HISTORY: 72 years Female, altered COMPARISON: None. TECHNIQUE: No contrast. Coronal and sagittal reformat. This exam was performed according to our departmental dose-optimization program, which includes automated exposure control, adjustment of the mA and/or kV according to patient size and/or use of iterative reconstruction technique. FINDINGS: No hemorrhage. No mass, mass effect, or midline shift. Atherosclerosis. Mild cerebral volume loss. Moderate white matter microangiopathy. Lacunar infarct of right basal ganglia. Mild ex vacuo enlargement of the ventricular system. Motion artifact. Brain and extra-axial structures appear otherwise intact. IMPRESSION: No acute findings. Lacunar infarct of the right basal ganglia.
[2018-01-23 04:01] VITALS: BP 164/75
== END 2018-01-23 05:35 | disposition home or self-care (01) ==
LOC: ER 18:54
DX: E86.0 Dehydration (principal); R41.82 Altered mental status, unspecified; R21 Rash and other nonspecific skin eruption; E11.9 Type 2 diabetes mellitus without complications; I10 Essential (primary) hypertension; J44.9 Chronic obstructive pulmonary disease, unspecified; Z86.73 Personal history of transient ischemic attack (TIA), and cerebral infarction without residual deficits; Z88.2 Allergy status to sulfonamides; Z88.8 Allergy status to other drugs, medicaments and biological substances
CPT/HCPCS: 99285; 96360; 36415; 87086; 85025; 82272; 80053; 81001; 71045; 70450; J7040

== ENCOUNTER 2018-03-07 19:21 | Emergency (ER) | payer MEDICARE, OTHER ==
[2018-03-07] MEDS ORDERED: LIDOCAINE 1% INJ-PF (10 MG/ML) 30 ML SDV INJ ONE (20:17)
--- NOTE | 2018-03-07 20:19 | ER Document Report ---
ED Fall - General Chief Complaint: Fall Stated Complaint: FALL,HEAD PAIN Time Seen by Provider: 03/07/18 20:00 Notes: Patient is a 72-year-old female comes emergency department for chief complaint fall, she comes by EMS from long-term care facility, patient was found down on the ground with a bleeding wound from her right forehead and a skin tear on her right knee. She states she has a small headache but she denies pain anywhere else. She is not on a blood thinner. Patient has dementia but she is able to converse, follow directions, and is alert. She is uncertain why she fell. TRAVEL OUTSIDE OF THE [place] IN LAST 30 DAYS: No - Related data Allergies/Adverse Reactions: Sulfa (Sulfonamide Antibiotics) Allergy (Intermediate, Verified 07/18/17 13:46) RASH silver [From Tegaderm AG Mesh] Allergy (Verified 07/18/17 17:43) methotrexate [Methotrexate] Adverse Reaction (Unknown, Verified 07/18/17 13:46) Hepatic dysfunction Past Medical History - General Information source: Patient, Transfer Record - Social History Smoking Status: Never Smoker Frequency of alcohol use: None Drug Abuse: None Lives with: [facility] Family History: Reviewed & Not Pertinent Patient has suicidal ideation: No Patient has homicidal ideation: No - Past Medical History Cardiac Medical History: Reports: Hx Hypercholesterolemia, Hx Hypertension Denies: Hx Heart Attack Pulmonary Medical History: Reports: Hx COPD, Hx Pneumonia Denies: Hx Asthma, Hx Tuberculosis Neurological Medical History: Reports: Hx Cerebrovascular Accident - USES WHEELCHAIR. 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 Denies: Hx Mastectomy, Hx Open Heart Surgery , Hx Pacemaker - Immunizations Hx Diphtheria, Pertussis, Tetanus Vaccination: Yes Hx Pneumococcal Vaccination: 09/01/12 Review of Systems - Review of Systems Constitutional: No symptoms reported EENT: No symptoms reported Cardiovascular: No symptoms reported Respiratory: No symptoms reported Gastrointestinal: No symptoms reported Genitourinary: No symptoms reported Female Genitourinary: No symptoms reported Musculoskeletal: See HPI Skin: No symptoms reported Hematologic/Lymphatic: No symptoms reported Neurological/Psychological: No symptoms reported Physical Exam - Vital signs Vitals: Temp Pulse Resp BP Pulse Ox 97.7 F 80 18 153/53 H 100 03/07/18 19:22 03/07/18 19:22 03/07/18 19:22 03/07/18 19:22 03/07/18 19:22 - Notes Notes: GENERAL: Alert, interacts well. No acute distress. HEAD: Normocephalic; 4 cm horizontal irregular laceration noted over the right forehead with some current bleeding, no deformity or swelling noted otherwise. EYES: Pupils equal, round, and reactive to light. Extraocular movements intact. ENT: Oral mucosa moist, tongue midline. [Nares patent, no nasal septal hematoma , TM's intact.] NECK: Full range of motion. Supple. Trachea midline. LUNGS: Clear to auscultation bilaterally, no wheezes, rales, or rhonchi. No respiratory distress. HEART: Regular rate and rhythm. No murmur ABDOMEN: Soft, non-tender. Non-distended. Bowel sounds present in all 4 quadrants. EXTREMITIES: Moves all 4 extremities spontaneously. No edema, normal radial and dorsalis pedis pulses bilaterally. Abrasion noted over the right knee, no swelling of the knee, full range of motion of the joint, normal extremity exam otherwise BACK: no cervical, thoracic, lumbar midline tenderness. No saddle anesthesia, normal distal neurovascular exam. NEUROLOGICAL: Alert and oriented x3. Normal speech. [cranial nerves II through XII grossly intact]. PSYCH: Normal affect, normal mood. SKIN: Warm, dry, normal turgor. No rashes or lesions noted. Course - Re-evaluation Re-evalutation: Patient is actually smiling, cooperative, and well-appearing. She does have a laceration to the right forehead, skin tear to the right knee, however chest, abdomen, back, extremities, and neurological exam other than dementia are otherwise unremarkable. Imaging of the lower extremity and head are unremarkable. Wounds repaired. Discharging with return precautions. - Vital Signs Vital signs: Temp Pulse Resp BP Pulse Ox 97.7 F 80 18 159/68 H 98 03/07/18 19:22 03/07/18 23:04 03/07/18 23:04 03/07/18 23:04 03/07/18 23:04 Procedures - Laceration/Wound Repair Right upper forehead Wound length (cm): 4 Wound's Depth, Shape: Irregular Laceration pre-procedure: Sterile PPE donned, Sterile drapes applied, Shur- Clens applied Anesthetic type: 1% Lidocaine Volume Anesthetic (mLs): 5 Wound explored: Clean, No foreign body removed Wound Repaired With: Sutures Suture Size/Type: 5:0, Nylon Number of Sutures: 8 Layer Closure?: No Post-procedure NV exam normal: Yes Complications: No Discharge - Discharge Clinical Impression: Skin tear Fall Qualifiers: Encounter type: initial encounter Qualified Code(s): W19.XXXA - Unspecified fall, initial encounter Forehead laceration Qualifiers: Encounter type: initial encounter Qualified Code(s): S01.81XA - Laceration without foreign body of other part of head, initial encounter Right knee pain Qualifiers: Chronicity: acute Qualified Code(s): M25.561 - Pain in right knee Condition: Stable Disposition: HOME, SELF-CARE Additional Instructions: CAT scan of the head and x-ray of the knee are unremarkable. Sutures in the forehead need to come out in about 1 week. Keep clean, clean with soap and water, apply topical antibiotic. Keep skin tear on knee clean with clean dressing and topical antibiotic. Follow-up with primary care. Return for any concerning symptoms including vomiting, signs of wound infection including redness, swelling, discolored discharge, fever, etc. Referrals: HATTIE CUEVAS MD [Primary Care Provider] - Follow up as needed
--- NOTE | 2018-03-07 21:01 | RADIOLOGY REPORT (SQ) ---
EXAM DESCRIPTION: CT HEAD WITHOUT COMPLETED DATE/TIME: 03/07/2018 8:52 pm REASON FOR STUDY: fall, head injury COMPARISON: 01/23/2018 TECHNIQUE: Axial images acquired through the brain without intravenous contrast. Images reviewed wi th bone, brain and subdural windows. Images stored on PACS. All CT scanners at this facility use dose modulation, iterative reconstruction, and/or weight based d osing when appropriate to reduce radiation dose to as low as reasonably achievable (ALARA). [facility]: Dose Right [facility]: CareDose [facility]: Dose Right [facility]: Teradose 4D [facility]: Smart Rewarder RADIATION DOSE: CT Rad equipment meets quality standard of care and radiation dose reduction techniq ues were employed. CTDIvol: 53.2 mGy. DLP: 937 mGy-cm.mGy. LIMITATIONS: None. FINDINGS: VENTRICLES: Prominent. CEREBRUM: No masses. No hemorrhage. No midline shift. Areas of low density in the white matter mos t likely due to chronic micro-vascular ischemic change. No evidence for acute infarction. CEREBELLUM: No masses. No hemorrhage. No alteration of density. No evidence for acute infarction. EXTRAAXIAL SPACES: Age-related involutional change. No fluid collections. No masses. ORBITS AND GLOBE: No intra- or extraconal masses. Normal contour of globe without masses. CALVARIUM: No fracture. PARANASAL SINUSES: No fluid or mucosal thickening. SOFT TISSUES: Mild right frontal swelling. OTHER: No other significant finding. IMPRESSION: No acute intracranial findings. EVIDENCE OF ACUTE STROKE: NO. TECHNICAL DOCUMENTATION: JOB ID: [id number] Quality ID # [id number]: Final reports with documentation of one or more dose reduction techniques (e.g., Au tomated exposure control, adjustment of the mA and/or kV according to patient size, use of iterative reconstruction technique) 2010 [employer]- All Rights Reserved Reading location - IP/workstation name: [email or web address]
--- NOTE | 2018-03-07 21:03 | RADIOLOGY REPORT (SQ) ---
EXAM DESCRIPTION: KNEE RIGHT 4 VIEWS COMPLETED DATE/TIME: 03/07/2018 8:53 pm REASON FOR STUDY: fall, pain COMPARISON: None. NUMBER OF VIEWS: Four views. TECHNIQUE: AP, lateral, and both oblique radiographic images acquired of the right knee. LIMITATIONS: None. FINDINGS: MINERALIZATION: Osteopenia. BONES: No acute fracture or dislocation. No worrisome bone lesions. JOINT: No effusion. SOFT TISSUES: No soft tissue swelling. No radio-opaque foreign body. OTHER: No other significant finding. IMPRESSION: No fracture identified. TECHNICAL DOCUMENTATION: JOB ID: [id number] 2010 [employer]- All Rights Reserved Reading location - IP/workstation name: [email or web address]
[2018-03-07 23:05] VITALS: BP 159/68
== END 2018-03-07 23:04 | disposition home or self-care (01) ==
LOC: ER 19:21
PROC: 0HQ1XZZ Repair Face Skin, External Approach (ICD-10-PCS; principal; 2018-03-07)
DX: S01.81XA Laceration without foreign body of other part of head, initial encounter (principal); S81.011A Laceration without foreign body, right knee, initial encounter; R51 Headache; W19.XXXA Unspecified fall, initial encounter; Y92.129 Unspecified place in nursing home as the place of occurrence of the external cause; F03.90 Unspecified dementia, unspecified severity, without behavioral disturbance, psychotic disturbance, mood disturbance, and anxiety; E78.00 Pure hypercholesterolemia, unspecified; I10 Essential (primary) hypertension; J44.9 Chronic obstructive pulmonary disease, unspecified; E11.9 Type 2 diabetes mellitus without complications; Z88.2 Allergy status to sulfonamides; Z86.73 Personal history of transient ischemic attack (TIA), and cerebral infarction without residual deficits; Z90.49 Acquired absence of other specified parts of digestive tract; Z90.710 Acquired absence of both cervix and uterus
CPT/HCPCS: 70450; 99284